=== PATIENT | male | born 1940 | race Caucasian/White ===

== ENCOUNTER → 2016-06-25 | Outpatient (CLI) | payer OTHER ==
[~2016-06-25] VITALS: Ht 170.2 cm; Wt 72.6 kg
[~2016-06-25] MED LIST: ACTOS 30 MG TAB30 M2 PO; ALIGN4 MG PO; AMARYL1 MG; AMARYL1 MG PO; AMARYL2 MG PO; APAP650 PO; BUTRANS1 EAC1 TD; CALCIUM 500 +1 EAC5; CALCIUM 500 +1 EAC5 PO; CALCIUM OYSTER500 MG PO; CENTRUM SILVER1 EAC2; CIPROFLOXACIN500 M1 PO; CIPROFLOXACIN500 M3 OR; COUMADIN 4 MG TA4 M1; COUMADIN 4 MG TA4 M1 PO; COUMADIN PO; DESYREL50 MG PO; DEXILANT30 MG; DEXILANT60 MG PO; DIABETA 2.5MG2.5 MG PO; DIAZEPAM 2MG TAB2 MG PO; FINASTERIDE5 MG PO; FISH OIL 1,001000 M2 PO; FLAGYL500 MG PO; GAS-X180 MG PO; GLUCOPHAGE500 MG PO; HYDROCODON-ACE1 EAC7 PO; IMODIUM ADVANC1 EAC1 PO; INVOKANA100 MG; INVOKANA300 MG PO; K-DUR10 MEQ PO; KAPIDEX30 MG PO; LEVAQUIN 500 M500 M1 PO; LOPERAMIDE 2 MG2 M1 PO; LOVAZA1000 MG PO; LYRICA 75 MG CA75 MG PO; MELATONIN1 MG PO; MELATONIN3 M3 PO; MELATONIN3 MG; METAMUCIL0.52 GM PO; MS CONTIN15 MG PO; MULTIVITAMINS PO; NIASPAN ER 101000 M1 PO; NIASPAN750 MG PO; NORCO 5-325 TA1 EACH PO; OPIUM PO; OPIUM TINC10 MG/1 M1 PO; OPIUM TINC10 MG/1 ML PO; OPIUM10 MG/1 ML PO; OS-CAL 500+D C1 EACH PO; OSTEO BI-FLEX1 EAC1 PO; OXYCODONE HCL E10 MG PO; PEPCID20 MG PO; PERCOCET PO; PREDNISONE 20 M20 MG PO; PROTONIX 20 MG20 M1 PO; REGLAN 10 MG TA10 MG PO; SINGULAIR 10 MG10 M1; SINGULAIR 10 MG10 M1 PO; SLOW-MAG64 MG PO; TAMSULOSIN HCL0.4 MG PO; TOPROL XL25 MG; TOPROL XL25 MG PO; VALIUM5 MG PO; VITAMIN D1000 UNI1 PO; VITAMIN D31000 UNI2 PO; VITAMIN D3400 UNIT; VITAMIN D400 UNI1 PO; WELLBUTRIN XL300 M2 PO; XALATAN2.5 ML OPHTHALMIC; XANAX 0.25 MG0.25 MG; XANAX 0.25 MG0.25 MG PO; XANAX 0.5 MG0.5 MG PO; XANAX XR1 MG PO; ZOFRAN ODT4 MG PO; [UNRECOGNIZED DRUG - OTHER]
--- NOTE | ~2016-06-25 | HPC ---
[facility] [place] [address] PAIN MANAGEMENT CONSULTATION Name: MARBIN SHIRLEY [id number] Admission: 06/25/16 Attend Phys: Moustapha Coyne MD Discharge: Date of : 38 Report #: [id number] THIS REPORT FOR: //name// CC: Ming Coyne DATE OF SERVICE: 06/25/2016 DATE OF SERVICE: Followup visit for low back pain with radiation to both hips. The patient returns to pain clinic today and would like to have repeat of facet injections that we performed in 2014. He is having almost identical pain. Pain is located in his buttocks and begins in his mid back. At that time, I performed bilateral L4-L5 facet injections where he has x-ray evidence of facet arthropathy. Pain is now returning. He is trying to avoid an increase of medication, which may cause side effects. He remains very active. MEDICATIONS: Reviewed and elicited in electronic medical record, uses Tylenol Arthritis at this time. PHYSICAL EXAMINATION: GENERAL: This is 76 years old who looks younger and acts younger. He moves quickly without antalgic features. VITAL SIGNS: Blood pressure 110/72, heart rate 72, respirations 16. BMI is 25. EXTREMITIES: Examination of the hips reveals no pain with internal and external rotation. No pain with flexion. Carmela is negative. MUSCULOSKELETAL: Examination of the spine reveals good range of motion in flexion, extension reproduces pain and radiating referred patterns to the L4-L5 facet. There is localized tenderness there. X-rays again demonstrate facet arthropathy at L4-L5 and spondylosis. IMPRESSION: Spondylosis lumbosacral spine, particularly at L4-L5 of a focal isolated facet joint arthritis. RECOMMENDATIONS: Facet injections bilaterally under fluoroscopic guidance. We cannot perform these injections today due to preauthorization requirements. Since we proceed with the injections. By: 1722 0027 Moustapha Coyne MD /nt
[2016-06-25 14:34] VITALS: BP 110/72
== END ==
LOC: PAIN 06:51
DX: M47.817 Spondylosis without myelopathy or radiculopathy, lumbosacral region (principal); M46.87 Other specified inflammatory spondylopathies, lumbosacral region; Z87.891 Personal history of nicotine dependence

== ENCOUNTER → 2016-07-09 | Outpatient (CLI) | payer OTHER ==
[~2016-07-09] VITALS: Ht 170.2 cm; Wt 74.4 kg
--- NOTE | ~2016-07-09 | HPC ---
[address] [place] [address] PAIN MANAGEMENT CONSULTATION Name: MARBIN SHIRLEY [id number] Admission: 07/09/16 Attend Phys: Moustapha Coyne MD Discharge: Date of : 38 Report #: [id number] THIS REPORT FOR: //name// CC: Ming Coyne DATE OF SERVICE: 07/09/2016 REASON FOR VISIT: Followup visit for lumbar radiculopathy and lumbar spondylosis, specifically, L4-L5. HISTORY OF PRESENT ILLNESS: The patient returns to pain clinic today with a scheduled L4-L5 bilateral facet injection. The record will reflect that he had nearly 1 year of good relief following an injection in this location. He has facet arthropathy of that location noted on MRI. Given his good response, we are hopeful that we will again see similar response. He complains of pain with standing and oftentimes that awakes him at night. Today, pain is not bad. PHYSICAL EXAMINATION: GENERAL: He is a fit 76-year-old much younger appearing than his stated age. VITAL SIGNS: His blood pressure 101/62 and heart rate 64. MUSCULOSKELETAL: Tenderness is mild across the low back today with minimal back extension pain. IMPRESSION: Facet arthropathy and lumbar spondylosis, L4-L5. RECOMMENDATION: Bilateral L4-L5 facet injection. PROCEDURE: He was taken to the fluoroscopic suite, placed prone, skin prepped with ChloraPrep, skin anesthetized over the L4-L5 facet joint on the left first. A 25-gauge needle was gently advanced into the facet joint through the posterior capsule. There was no blood or CSF aspirated and I gently injected 1 mL of 0.5% bupivacaine mixed with 20 mg of triamcinolone. He tolerated the injection well. C-arm was removed and ____ injection was then performed. He tolerated that injection well with pain zero at recovery. Followup visit planned as needed. We hope that we receive years of relief as we did before. By: 1621 0157 Moustapha Coyne MD /nt
[2016-07-09 12:38] VITALS: BP 101/62
== END | disposition home or self-care (01) ==
LOC: PAIN 07:13
DX: M47.816 Spondylosis without myelopathy or radiculopathy, lumbar region (principal); M46.96 Unspecified inflammatory spondylopathy, lumbar region; M54.16 Radiculopathy, lumbar region; Z87.891 Personal history of nicotine dependence

== ENCOUNTER → 2017-01-18 | Outpatient (CLI) | payer OTHER ==
[~2017-01-18] VITALS: Ht 170.2 cm; Wt 73.9 kg
--- NOTE | ~2017-01-18 | HPC ---
[facility] [address] [place] [address] PAIN MANAGEMENT CONSULTATION Name: MARBIN SHIRLEY Room #: REG [facility] Stephen.#: [id number] Admission: 01/18/17 Attend Phys: Moustapha Coyne MD Discharge: Date of : 38 Report #: [id number] THIS REPORT FOR: //name// CC: Ming Coyne DATE OF SERVICE: 01/18/2017 Followup visit for lumbar spondylosis. The patient returns to pain clinic today for facet injections. He had outstanding response previously with treatment of just 2 facets the L4-L5 joint bilaterally. We plan to repeat same today. Pain is worse at night, although constant. It is nighttime that really bothers him with insomnia. He has been taking 1 hydrocodone 5 at night and I have agreed to provide him with another prescription for 60 tablets. Medications were reviewed and reconciled. He has osteoarthritis, bilateral of the hips and also pain in the back with spondylosis. We discussed activities of daily living and exercise is important for managing his osteoarthritis. He does not smoke. He is not a fall risk. His use of opioid is minimal, no more than 5 morphine mg equivalents per day. We discussed the CDC guidelines briefly and the issues of the opioid crisis. All other medications reviewed and reconciled. He is on a very small amount of alprazolam 0.25 mg at bedtime. Coumadin is present, but should not interfere with these posterior injections. PHYSICAL EXAMINATION: Pleasant, alert and oriented, little bit anxious. Blood pressure 119/74, heart rate 73, BMI is 25.5. He is in good condition appears fit. He has tenderness across his low back, worse with back extension. He has mild radiation into the buttock cheeks, but no radiation further. IMPRESSION: Lumbar spondylosis with referred pain. PROCEDURE: Bilateral L4-L5 facet injections. After informed consent, he was taken to fluoroscopic suite, placed prone, skin prepped with ChloraPrep. Skin anesthetized over L4-L5 facet bilaterally. We first began the left and advanced 25-gauge needle into the inferior recess. After negative aspiration, I gently injected 2 mL of 0.5% bupivacaine mixed with 40 mg triamcinolone. Needle was removed. C-arm was then moved to the right and mirror image injection was performed at the L4-L5 facet joint. He tolerated the injections well. He was taken to recovery room. [place] [address] PAIN MANAGEMENT CONSULTATION Name: MARBIN SHIRLEY Room #: REG KARTHIK Kapoor#: [id number] Admission: 01/18/17 Attend Phys: Moustapha Coyne MD Discharge: Date of : 38 Report #: [id number] discharge for 60 tablets of hydrocodone and a followup visit planned in 2 to 3 months. By: 1322 1812 Moustapha Coyne MD /nt
[2017-01-18 12:35] VITALS: BP 119/74
== END | disposition home or self-care (01) ==
LOC: PAIN 07:29
DX: M47.816 Spondylosis without myelopathy or radiculopathy, lumbar region (principal); Z79.891 Long term (current) use of opiate analgesic; Z79.01 Long term (current) use of anticoagulants; Z91.041 Radiographic dye allergy status; Z88.8 Allergy status to other drugs, medicaments and biological substances; Z79.899 Other long term (current) drug therapy; Z87.891 Personal history of nicotine dependence

== ENCOUNTER → 2017-05-17 | Outpatient (CLI) | payer OTHER ==
[~2017-05-17] VITALS: Ht 170.2 cm; Wt 69.1 kg
[~2017-05-17] MED LIST changes: +DIPHENHIST50 MG PO
--- NOTE | ~2017-05-17 | HPC ---
[facility] [address] [address] PAIN MANAGEMENT CONSULTATION Name: MARBIN SHIRLEY Room #: REG [facility] MGm.#: [id number] Admission: 05/17/17 Attend Phys: Moustapha Coyne MD Discharge: Date of : 38 Report #: [id number] THIS REPORT FOR: //name// CC: Ming Coyne DATE OF SERVICE: 05/17/2017 Followup visit for low back pain. The patient was in the clinic for a short 10-minute followup visit today. We discussed his chronic back pain. He has spondylitic changes throughout his spine, age related. They bother him intermittently. On occasion when the pain is severe he has lumbar facet injections, last performed on 01/18/2017. It has now been almost 4 months and he continues to report a pain score of 0 most of the day. He wakes up sometimes at night and his back is a little bit sore, he can go back to sleep. If the pain is severe enough, he can take a pain medication, but he does not do that on a regular basis. He has a bottle of hydrocodone 5/325, 60 tablets were provided on 01/18/2017 and he still has some of the bottle left. He continues to exercise on a regular basis. Remains fit and has in fact lost some weight. PQRS shows he has some osteoarthritis of the right thumb in addition to the arthritic/spondylitic changes of his spine. He is a fit gentleman with a BMI of 23.9. His blood pressure 106/73, heart rate 66, his respirations 14, O2 sat 97. Pain intensity today is 0. He is not a fall risk, does not use a cane or a walker. He is on a blood thinner, Coumadin, for history of arrhythmia. I provide him with hydrocodone, but his calculated MME would be less than 3. He uses it very intermittently and only for severe pain. IMPRESSION: Lumbar spondylosis. Follow up as needed for injection treatment. Continue with excellent exercise and activity program. By: 1234 1346 Moustapha Coyne MD /nt
[2017-05-17 10:01] VITALS: BP 106/73
== END ==
LOC: PAIN 07:18
DX: M47.896 Other spondylosis, lumbar region (principal)

== ENCOUNTER 2017-07-25 22:24 | Inpatient (IN) | payer OTHER ==
[~2017-07-25] VITALS: Ht 170.2 cm; Wt 68.0 kg
[~2017-07-25 22:24] MED LIST changes: -AMARYL1 MG; -CENTRUM SILVER1 EAC2; +CENTRUM SILVER1 EAC2 PO; -DEXILANT30 MG; +DEXILANT30 MG PO; -INVOKANA100 MG; +INVOKANA100 MG PO; -SINGULAIR 10 MG10 M1; -VITAMIN D3400 UNIT; +VITAMIN D3400 UNIT PO; -XANAX 0.25 MG0.25 MG
[2017-07-25 22:35] VITALS: BP 136/92
[2017-07-25 22:41] LABS: URINE BILIRUBIN NEGATIVE (Negative); URINE BLOOD TRACE (Negative); URINE CLARITY CLEAR; URINE COLOR YELLOW; URINE GLUCOSE-RANDOM* 3+ (Negative); URINE KETONES NEGATIVE (Negative); URINE LEUKOCYTES-REFLEX NEGATIVE (Negative); URINE NITRITE-REFLEX NEGATIVE (Negative); URINE PROTEIN (DIPSTICK) NEGATIVE (Negative); URINE UROBILINOGEN 0.2 E.U./dl (0.2-1.0)
[2017-07-25 22:54] LABS: ABSOLUTE NEUTROPHILS 9.5 thou/uL (1.4-8.2); BASOPHILS 0.6 % (0.0-2.0); EOSINOPHILS 4.9 % (0.0-3.0); HEMATOCRIT 55.2 % (42.0-52.0); MCH 29.4 pg (26.0-34.0); MCHC 34.4 g/dL (28.0-37.0); MCV 85.5 fL (80.0-100.0); PLATELET COUNT 192 thou/uL (150-400); POLYS 76.5 % (36.0-66.0); RBC 6.45 mil/uL (4.50-6.00); RDW 13.8 % (10.5-14.5); WBC 12.5 thou/uL (4.0-11.0)
[2017-07-25 23:00] LABS: CALCIUM 9.8 mg/dL (8.5-10.1); CREATININE 1.1 mg/dL (0.7-1.3); POTASSIUM 4.2 mmol/L (3.5-5.1)
[2017-07-25 23:06] LABS: ALBUMIN 4.6 g/dL (3.4-5.0); TOTAL PROTEIN 8.9 g/dL (6.4-8.2)
[2017-07-26] VITALS (7 sets, daily range): BP systolic 12–136; BP diastolic 51–92
[2017-07-26] MEDS ORDERED: ZOLOFT25 MG PO (01:21)
[2017-07-26 09:17] LABS: CALCIUM 9.5 mg/dL (8.5-10.1); CREATININE 0.8 mg/dL (0.7-1.3)
[2017-07-26 09:18] LABS: POTASSIUM 4.6 mmol/L (3.5-5.1)
[2017-07-26] MEDS ORDERED: BETIMOL5 ML OTIC (11:25)
== END 2017-07-26 18:10 | disposition home or self-care (01) | DRG 392 ==
LOC: ER 22:24 → EROBS 23:58 → 4W 23:58
PROVIDERS: Emergency Medicine; Family Medicine
DX: K52.9 Noninfective gastroenteritis and colitis, unspecified (principal); K56.7 Ileus, unspecified; K21.9 Gastro-esophageal reflux disease without esophagitis; H40.9 Unspecified glaucoma; N40.0 Benign prostatic hyperplasia without lower urinary tract symptoms; E11.9 Type 2 diabetes mellitus without complications; Z88.8 Allergy status to other drugs, medicaments and biological substances; Z91.041 Radiographic dye allergy status; Z90.49 Acquired absence of other specified parts of digestive tract; Z87.891 Personal history of nicotine dependence

== ENCOUNTER → 2017-08-12 | Outpatient (CLI) | payer OTHER ==
[~2017-08-12] VITALS: Ht 152.4 cm; Wt 67.6 kg
[~2017-08-12] MED LIST changes: +BETIMOL5 ML OTIC; +ZOLOFT25 MG PO
--- NOTE | ~2017-08-12 | HPC ---
[facility] [address] [employer] [place] [address] PAIN MANAGEMENT CONSULTATION Name: MARBIN SHIRLEY Room #: REG [facility] MGm.#: [id number] Admission: 08/12/17 Attend Phys: Moustapha Coyne MD Discharge: Date of : 38 Report #: [id number] THIS REPORT FOR: //name// CC: Ming Coyne DATE OF SERVICE: 08/12/2017 Followup visit for lumbar spondylosis. The patient is here today for a preop visit prior to facet injections. He is required to undergo a preauthorization by his [employer] insurance. He reports to me that he gets good improvement with tightness in his back across the lumbosacral region that radiates into the hips in referred pattern. He always gets good relief. We have tried not to overutilize these injections and use them only as a tool when the pain becomes more unbearable for him. His last injection was on 01/18/2017. He scores his pain today is a 5. PQRS shows osteoarthritis in multiple joints, although he is really quite fit for age. He has tenderness and pain in multiple locations including hips, hands, and across the low back with spondylitic changes. His BMI is 23, blood pressure 162/77, heart rate is 77. Pain intensity is 5/10. He is not a fall risk. He is not on a blood thinner. He is not on hypertension medications and is not taking opioids at this time. IMPRESSION: Chronic low back pain with spondylosis. Pain across the lumbosacral segment. PLAN: Follow up for lumbosacral facet injections, L4-L5 and L5-S1 if necessary in 1-2 weeks. <ELECTRONICALLY SIGNED> By: Moustapha Coyne MD 08/16/17 1230 1545 [id number] Moustapha Coyne MD /nt
[2017-08-12 13:41] VITALS: BP 107/65
== END ==
LOC: PAIN 07:28
DX: M47.816 Spondylosis without myelopathy or radiculopathy, lumbar region (principal); M54.5 Low back pain; G89.29 Other chronic pain

== ENCOUNTER → 2017-08-30 | Outpatient (CLI) | payer OTHER ==
[~2017-08-30] VITALS: Ht 154.9 cm; Wt 66.2 kg
[~2017-08-30] MED LIST changes: +BENADRYL25 MG PO
--- NOTE | ~2017-08-30 | HPC ---
[facility] [place] [place] [address] PAIN MANAGEMENT CONSULTATION Name: MARBIN SHIRLEY Room #: REG [facility].#: [id number] Admission: 08/30/17 Attend Phys: Moustapha Coyne MD Discharge: Date of : 38 Report #: [id number] THIS REPORT FOR: //name// CC: Ming Coyne DATE OF SERVICE: 08/30/2017 Followup visit for lumbar spondylosis and injection of bilateral L4-L5 and L5-S1 facet joints. The patient was seen in consultation on 08/12/2017. He has responded nicely in the past with injection treatments for low back pain. He has lumbar spondylosis. Pain can be quite significant causing radiation into his hips, worse left than right. He has requested periodic injections when the pain becomes more severe and limits his activities. He plans on saying Mass this morning at [facility] where he lives. He is anxious to get some relief from his persistent daily pain. Pain intensity today is similar at a level of 5 with activity. With sitting, the pain intensity is 0. All PQRS review was the same as it was on 08/12/2017 with no changes. PHYSICAL EXAMINATION: He is stable today. Blood pressure 106/67, heart rate 74, respirations 16. Tenderness across his low back is noted and pain increased with lumbar extension. The patient is on Coumadin. We have performed these injections in the posterior segments of the spine without incident in the past. This is not an epidural injection. I felt it is safer to leave him on his Coumadin and then take him off. We will proceed with injections under fluoroscopic guidance. ASSESSMENT: Lumbar spondylosis, bilateral L4-L5 and L5-S1 with recurring intractable pain. PROCEDURE: Facet injections under fluoroscopic guidance. He was taken to the fluoroscopic suite, placed prone. Skin was prepped with ChloraPrep. Skin was anesthetized first on the left. 1% lidocaine was utilized to the skin and subcutaneous tissue. A 25-gauge needle was then advanced into the posterior inferior recess of the facet joints at L5-S1, L4-L5. After negative aspiration, I gently injected 20 mg of triamcinolone, 1.5 mL of 0.25% bupivacaine at each joint. Joanna were removed. C-arm was moved to the right and mirror image injections were performed at the L4-L5, L5-S1 facet joint bilaterally. This was accomplished without difficulty. [address] [address] PAIN MANAGEMENT CONSULTATION Name: MARBIN SHIRLEY Room #: REG CLI [facility]#: [id number] Admission: 08/30/17 Attend Phys: Moustapha Coyne MD Discharge: Date of : 38 Report #: [id number] There were no complications. The patient tolerated the procedure well, was observed for a short time in recovery room and discharged without weakness or numbness. Followup visit is scheduled on an as needed basis in the future. By: [id number] [id number] MD brianna Hernandez
[2017-08-30 09:03] VITALS: BP 106/67
== END | disposition home or self-care (01) ==
LOC: PAIN 08:34
DX: M47.816 Spondylosis without myelopathy or radiculopathy, lumbar region (principal); G89.29 Other chronic pain; Z79.01 Long term (current) use of anticoagulants; Z87.891 Personal history of nicotine dependence; Z91.041 Radiographic dye allergy status; Z88.8 Allergy status to other drugs, medicaments and biological substances; Z87.19 Personal history of other diseases of the digestive system

== ENCOUNTER → 2017-09-06 | Outpatient (CLI) | payer OTHER | LOC: RAD 08-31 14:51 | DX: K56.699 Other intestinal obstruction unspecified as to partial versus complete obstruction (principal); Z91.041 Radiographic dye allergy status ==

== ENCOUNTER → 2017-09-23 | Outpatient (CLI) | payer OTHER ==
[~2017-09-23] VITALS: Ht 170.2 cm; Wt 65.3 kg
[~2017-09-23] MED LIST changes: +BEANO300 UNIT PO; -CALCIUM 500 +1 EAC5; +IPRATROPIUM BRO30 ML NASAL; -[UNRECOGNIZED DRUG - OTHER]; +[UNRECOGNIZED DRUG - OTHER] PO
--- NOTE | ~2017-09-23 | P ---
[facility] [place] [address] PROCEDURE REPORT Name: MARBIN SHIRLEY Room #: REG [facility]#: [id number] Admission: 09/23/17 Attend Phys: Marcello Hill MD Discharge: Date of : 38 Report #: [id number] THIS REPORT FOR: //name// CC: Marcello Perez MD BRIEF HISTORY: The patient is a 77-year-old male well known to me with recurrent solid food dysphagia. 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 He was treated by Dr. Armin Perez with Botox and felt that it was not effective. However, he reports previous dilation did help. PREOPERATIVE DIAGNOSES: Dysphagia and cricopharyngeal achalasia. POSTOPERATIVE DIAGNOSES: 1. Cricopharyngeal achalasia. 2. Dysphagia. 3. Zenker diverticulum. 4. Presbyesophagus. MEDICATIONS: Deep sedation with propofol per anesthesia. SPECIMEN: None. ESTIMATED BLOOD LOSS: None. PROCEDURE: EGD with Rick dilation. FINDINGS: Prior to propofol sedation, procedure of upper endoscopy discussed with the patient as well as potential risks and its complications. He indicates he understands and desires to proceed. DESCRIPTION OF PROCEDURE: With the patient in left decubitus position, the Olympus video endoscope was inserted in cervical esophagus under direct vision without difficulty. Examination of the esophagus through its entire length revealed normal esophageal mucosa. In addition, we carefully examined the upper esophageal sphincter with multiple insertions and withdrawal of scope across the upper esophageal sphincter. I could not identify a Zenker diverticulum. He is noted to have a small Zenker diverticulum. The mucosa through the esophagus was normal. It is also noted he did have tertiary contractions as well. The squamocolumnar junction was unremarkable. A definite stricture or ring was not seen. Hiatus hernia was not seen. There was no evidence of esophagitis or Gillis mucosa. Esophageal varices were not seen. Scope was advanced in the stomach, was examined on end view as well as retroflexed views. He had normal appearing mucosa. No ulcers or erosions were seen. There were no retained [address] [address] PROCEDURE REPORT Name: MARBIN SHIRLEY Room #: REG [facility].#: [id number] Admission: 09/23/17 Attend Phys: Marcello Hill MD Discharge: Date of : 38 Report #: [id number] solids or liquids to suggest gastroparesis. He has had some nausea and some early satiety. Upon retroflexion, no mass lesions were seen. The pylorus, duodenal bulb and postbulbar sweep were all inspected and noted to be within normal limits. At that point, the scope was slowly withdrawn and careful circumferential views confirmed the above findings. The patient tolerated the procedure well. Subsequently, he was dilated with passage of a 50-Chilean Rick dilator. There was no resistance. As we have done before, subsequently a 60-Chilean Rick dilator was passed with no resistance whatsoever. The patient tolerated the procedure well. CONDITION OF THE PATIENT UPON DISCHARGE: Following procedure, the patient drowsy. He will be discharged home when fully ambulatory. INSTRUCTIONS TO THE PATIENT AND FAMILY AT THE TIME OF DISCHARGE: There are multiple facets to his dysphagia including cricopharyngeal achalasia as well as likely a presbyesophagus. He has had symptomatic relief in the past with dilation. We will see how he does at this time. He should return to see me as previously planned. We can repeat dilation on an as needed basis as long as he gains benefit from it. By: 0905 1829 Marcello Hill MD /nt
[2017-09-23 08:22] LABS: INR 1.4; PROTIME 14.4 Seconds (9.3-11.4)
== END | disposition home or self-care (01) ==
LOC: GI 07:20
PROVIDERS: Anesthesiology
DX: K22.2 Esophageal obstruction (principal); K22.0 Achalasia of cardia; K22.5 Diverticulum of esophagus, acquired; K22.8 Other specified diseases of esophagus; I10 Essential (primary) hypertension; E78.5 Hyperlipidemia, unspecified; E11.9 Type 2 diabetes mellitus without complications; K21.9 Gastro-esophageal reflux disease without esophagitis; H40.9 Unspecified glaucoma; N40.0 Benign prostatic hyperplasia without lower urinary tract symptoms; K58.9 Irritable bowel syndrome, unspecified; Z88.8 Allergy status to other drugs, medicaments and biological substances; Z91.041 Radiographic dye allergy status; Z91.038 Other insect allergy status; Z79.01 Long term (current) use of anticoagulants; Z79.899 Other long term (current) drug therapy; Z79.84 Long term (current) use of oral hypoglycemic drugs; Z87.891 Personal history of nicotine dependence; Z98.890 Other specified postprocedural states; Z90.89 Acquired absence of other organs; Z90.49 Acquired absence of other specified parts of digestive tract; Z91.09 Other allergy status, other than to drugs and biological substances
CPT/HCPCS: 62110; 62900

== ENCOUNTER → 2018-05-23 | Outpatient (CLI) | payer OTHER ==
[~2018-05-23] VITALS: Ht 170.2 cm; Wt 66.7 kg
[~2018-05-23] MED LIST changes: +FLONASE 0.05%50 MCG NASAL; -MELATONIN3 MG; +MELATONIN3 MG PO; -TOPROL XL25 MG
--- NOTE | ~2018-05-23 | P ---
[facility] [place] [address] [place] [address] PROCEDURE REPORT Name: MARBIN SHIRLEY Room #: REG [facility]#: [id number] Admission: 05/23/18 ������������������ Attend Phys: Marcello Hill MD Discharge: ������������������ Date of : 38 Report #: [id number] THIS REPORT FOR: //name// CC: Marcello Contreras MD DATE OF SERVICE: 05/23/2018 OUTPATIENT UPPER ENDOSCOPY REPORT: BRIEF HISTORY: The patient is an 78-year-old male with recurrent solid food dysphagia. He has a history of a Zenker diverticulum. He has had symptomatic improvement with dilation in the past. In addition, he has chronic diarrhea. PREOPERATIVE DIAGNOSIS: Dysphagia. POSTOPERATIVE DIAGNOSES: 1. Diffuse gastritis. 2. Candidiasis involving the oropharynx and esophagus. 3. Dysphagia. 4. 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 MEDICATIONS: Deep sedation with propofol for anesthesia. SPECIMENS: 1. Small bowel biopsies to rule out celiac disease. 2. Biopsies of gastritis. ESTIMATED BLOOD LOSS: 3 mL. PROCEDURE: EGD with biopsy, Rick dilation. FINDINGS: Prior to propofol sedation, the procedure of upper endoscopy and dilation was reviewed with the patient as well as potential risks, benefits, and complications. He indicates he understands and desires to proceed. DESCRIPTION OF PROCEDURE: With the patient in left lateral decubitus position, the Olympus video endoscope was inserted in the cervical esophagus under direct vision without difficulty. Examination of this organ through its entire length revealed intact esophageal mucosa, but whitish plaques were seen consistent with candidiasis. It is noted he is using a steroid nasal spray. In addition, there was a moderate amount of similar process in the oropharynx. The squamocolumnar junction was identified as unremarkable. I did not see evidence of stricture or mass. The scope was advanced into the stomach, was examined on end view as well as retroflexed views. The mucosa was intact. There was trace amount of bile in [facility] [address] [place] [address] PROCEDURE REPORT Name: SHIRLEYMARBIN BUNNY Room #: REG [facility].#: [id number] Admission: 05/23/18 ������������������ Attend Phys: Marcello Hill MD Discharge: ������������������ Date of : 38 Report #: [id number] the stomach. The mucosa was diffusely erythematous without ulcers or erosions. The stomach was examined on end view as well as retroflexed views. In the antrum, only gastritis was seen. Upon retroflexion, no mass lesions were seen. However, inspection of the body, after full insufflation of the body of stomach with air, possible gastric varices was seen. There was no evidence of bleeding. There were no stigmata of bleeding. The pylorus was unremarkable. Duodenal bulb was unremarkable. The duodenal sweep down to the third portion was unremarkable. Multiple biopsies were obtained to evaluate for celiac disease in view of his diarrhea. We also obtained gastric biopsies as well. Scope was withdrawn. The patient tolerated the procedure well. Subsequently, he was dilated with passage of a 60-Irish Rick dilator as we have done in the past. This passed without difficulty. In addition, he is known to have a Zenker diverticulum, but I could not visualize one endoscopically today. CONDITION OF THE PATIENT UPON DISCHARGE: Following procedure, the patient drowsy. He was then prepared for colonoscopy. INSTRUCTIONS TO THE PATIENT AND FAMILY AT THE TIME OF DISCHARGE: We will follow up on biopsies obtained today. We will review his records and likely proceed with imaging of the abdomen for further evaluation of gastric varices in view of his history of severe pancreatitis in the past with diabetes. We will also place him on Diflucan in view of his oral candidiasis. He is to return for dilation on an as needed basis as long as benefits are obtained. Proceed with colonoscopy at this time. ��������������������������������������������� ���������������������������������������� By: ��������������������������������������������� 0900 2312 Marcello Hill MD /nt
--- NOTE | ~2018-05-23 | P ---
[facility] [place] [address] [place] [address] PROCEDURE REPORT Name: MARBIN SHIRLEY Room #: REG [facility].#: [id number] Admission: 05/23/18 ������������������ Attend Phys: Marcello Hill MD Discharge: ������������������ Date of : 38 Report #: [id number] THIS REPORT FOR: //name// CC: Marcello Contreras MD DATE OF SERVICE: 05/23/2018 BRIEF HISTORY: The patient is an 78-year-old male with history of colon adenomas. He also has chronic diarrhea. PREOPERATIVE DIAGNOSIS: High risk screening colonoscopy due to history of colon polyps and chronic diarrhea. POSTOPERATIVE DIAGNOSIS: Moderate diverticulosis coli, right and left colon. MEDICATIONS: Deep sedation with propofol per anesthesia. SPECIMENS: 1. Random biopsies, proximal colon, rule out diarrhea. 2. Random biopsies distal colon and rectum, rule out diarrhea. ESTIMATED BLOOD LOSS: 3 mL. PROCEDURE: Colonoscopy to cecum and terminal ileum with biopsy. FINDINGS: Prior to propofol sedation, procedure of colonoscopy discussed with the patient as well as potential risks and its complications. He indicates he understands and desires to proceed. DESCRIPTION OF PROCEDURE: With the patient in left lateral decubitus position, digital examination was completed, which revealed no abnormalities. Subsequently, the Olympus video colonoscope was introduced in the rectum, advanced under direct vision to the cecum. Done with minimal difficulty. The cecum was identified by the ileocecal valve and the appendiceal orifice. I was also able to advance the scope across the ileocecal valve and visualize the distal segment of terminal ileum, which was inspected and noted to be unremarkable. At that point, the scope was slowly withdrawn and careful circumferential views were obtained. There was some bilious material in the colon, which needed to be cleaned up. Overall, a good prep was obtained with cleaning especially in the proximal colon. As we withdrew the scope throughout the colon, the colon was within normal limits. Normal vascular pattern, normal light reflex. No neoplastic lesions were seen on today's exam. There were few scattered diverticula in the proximal colon. There was no endoscopic evidence of diverticulitis. As we withdrew the scope, there was moderate diverticular [facility] [address] [place] [address] PROCEDURE REPORT Name: FERNMARBIN BUNNY Room #: REG [facility].#: [id number] Admission: 05/23/18 ������������������ Attend Phys: Marcello Hill MD Discharge: ������������������ Date of : 38 Report #: [id number] disease seen in the sigmoid colon, but no endoscopic evidence of diverticulitis. The scope was withdrawn in the rectum, no abnormalities were seen. Upon retroflexion, no abnormalities were seen. Scope was withdrawn. The patient tolerated the procedure well. CONDITION OF THE PATIENT UPON DISCHARGE: Following procedure, the patient drowsy, aroused, conversant and will be discharged home when fully ambulatory. INSTRUCTIONS TO THE PATIENT AND FAMILY AT THE TIME OF DISCHARGE: Suggest high fiber diet. We will follow up on biopsies with regards to the diarrhea. No neoplastic lesions were seen. In this point in life, he is not likely to gain benefit from continued routine surveillance colonoscopy in view of his history of polyps. However, colonoscopy should be needed for other purposes, could be undertaken as indicated. He will continue his tincture of opium for his chronic diarrhea. We will make further recommendations after review of the biopsies. Last colonoscopy was 7-8 years ago. Withdrawal time from the cecum was 11 minutes 10 seconds. ��������������������������������������������� ���������������������������������������� By: ��������������������������������������������� [id number] [id number] Marcello Hill MD /nt
--- NOTE | 2018-05-23 07:47 | EKG ---
[place] [address] [facility] [facility] [place] [address] ELECTROCARDIOGRAM REPORT Name: MARBIN SHIRLEY [id number] ������������������ Admission: 05/23/18 ������������������ Attend Phys: Marcello Hill MD Discharge: ������������������ Date of : 38 Report #: [id number] ����������������������������������������������������������������� [id number] THIS REPORT FOR: //name// [facility] Test Date: 2018-05-23 Test Time: 07:12:54 Pat Name: MARBIN SHIRLEY Department: Room: Gender: M Mold Changer: JASSON : 1940 Requested By: Marcello Hill Order Number: [id number] MD: Luis De La Cruz Measurements Intervals Canvas Rate: 79 P: 26 MS: 185 QRS: -10 QRSD: 90 T: 36 QT: 375 QTc: 430 Interpretive Statements Sinus rhythm Inferior infarct, old Compared to ECG 05/28/2015 21:15:34 Inferior Q waves are more prominent Electronically Signed On 05-23-2018 7:47:22 CDT by Luis De La Cruz [email or web address] ��������������������������������������������� <ELECTRONICALLY SIGNED> ���������������������������������������� By: Luis De La Cruz MD, [facility] ��������������������������������������������� 05/23/18 0747 0712 1 Luis De La Cruz MD, FACC /EPI
[2018-05-23 08:16] LABS: INR 1.1; PROTIME 11.3 Seconds (9.3-11.4)
--- NOTE | 2018-05-24 16:06 | PATH ---
[facility] [place] [address] PATHOLOGY RPT PROCEDURE Name: YURIY GAITAN Room #: REG [facility].#: [id number] ������������������ Admission: 05/23/18 ������������������ Date of : 38 Discharge: Report #: [id number] Path Case #: [id number] [facility] Accession Number: [id number] . 01 Material submitted: . PART A: BX SMALL BOWEL R/O CELIAC DISEASE PART B: BX GASTRITIS R/O HPYLORI PART C: BX PROXIMAL COLON R/O COLITIS HX DIARRHEA PART D: BX DISTAL COLON AND RECTUM R/O COLITIS HX DIARRHEA . 01 Clinical history: . Dysphagia, diarrhea, history of polyps Gastritis, dysphagia, ellyn esophagitis, diverticulosis A: Rule out celiac B: Rule out H. pylori C/D: Rule out colitis . 02 Diagnosis: A. Small bowel mucosa, small bowel R/O celiac disease, endoscopic biopsy: - No diagnostic abnormalities present. . B. Gastric mucosas, gastritis R/O H. pylori, endoscopic biopsy: - Mild reactive gastropathy. - Negative for intestinal metaplasia or atrophy. - Negative for Helicobacter pylori (properly controlled immunohistochemical stain performed. . C. Large intestinal mucosa, proximal colon R/O colitis, endoscopic biopsy: - Nonspecific reactive changes. - Negative for microscopic colitis. - Negative for dysplasia or malignancy. . D. Large intestinal mucosa, distal colon and rectum, endoscopic biopsy: - Nonspecific reactive changes. - Negative for microscopic colitis. - Negative for dysplasia or malignancy. (IUV:ulis; 05/24/2018) QMS/05/24/2018 . 02 Comment: Sections of the colonic mucosa designated "proximal colon" and "distal colon and rectum" show focal cryptitis, and a moderately cellular lamina propria composed predominantly of lymphocytes and plasma cells and occasional eosinophils. Surface ulceration is not identified. There are no parasites, granulomas or viral inclusions. Given the description, the differential diagnosis includes focal resolving/transient episode of [facility] [address] [place] [address] PATHOLOGY RPT PROCEDURE Name: YURIY GAITAN Room #: REG [facility]#: [id number] ������������������ Admission: 05/23/18 ������������������ Date of : 38 Discharge: Report #: [id number] Path Case #: [id number] active colitis, bowel preparation, medication-induced colitis, resolving infectious-type of colitis amongst other possibilities. Please correlate with clinical as well as endoscopic findings. (IUV:luis; 05/24/2018) . 02 Electronically signed: . Yessica Kaplan MD, Pathologist NPI- [id number] . 01 Gross description: . A. The specimen is received in formalin, labeled "Gaitan, Yuriy, BX small bowel" and consists of multiple fragments of soft chase tissue measuring 0.9 x 0.6 x 0.2 cm in aggregate which are entirely submitted in A1. . B. The specimen is received in formalin, labeled "Gaitan, Yuriy, BX gastritis" and consists of multiple fragments of soft chaes tissue measuring 1.2 x 0.6 x 0.2 cm in aggregate which are entirely submitted in B1. . C. The specimen is received in formalin, labeled "Gaitan, Yuriy, BX proximal colon" and consists of multiple fragments of soft chase-brown tissue measuring 0.9 x 0.7 x 0.3 cm in aggregate which are entirely submitted in C1. . D. The specimen is received in formalin, labeled "Gaitan, Yuriy, BX distal colon and rectum" and consists of multiple fragments of chase tissue measuring 1.8 x 0.6 x 0.2 cm in aggregate which are entirely submitted in D1. (SDY; 05/23/2018) SYU/SYU . 02 Pathologist provided ICD-10: K31.9 . 02 CPT . 196718, 640348, 508933, 263376, X45132 Specimen Comment: A courtesy copy of this report has been sent to Specimen Comment: [phone], . Specimen Comment: Report sent to / DR BEJARANO Performed at: [address] [facility], [place], [place] [id number] MD Erik Woods MD Phone: [phone] Performed at: [address] [id number] MD Yessica Kaplan MD Phone: [phone]
== END | disposition home or self-care (01) ==
LOC: GI 06:58
PROVIDERS: Specialist
DX: K52.9 Noninfective gastroenteritis and colitis, unspecified (principal); K57.30 Diverticulosis of large intestine without perforation or abscess without bleeding; R13.10 Dysphagia, unspecified; K29.70 Gastritis, unspecified, without bleeding; B37.9 Candidiasis, unspecified; K31.9 Disease of stomach and duodenum, unspecified; I10 Essential (primary) hypertension; E78.5 Hyperlipidemia, unspecified; K21.9 Gastro-esophageal reflux disease without esophagitis; N40.0 Benign prostatic hyperplasia without lower urinary tract symptoms; E11.9 Type 2 diabetes mellitus without complications; Z86.010 Personal history of colon polyps; Z87.891 Personal history of nicotine dependence; Z90.49 Acquired absence of other specified parts of digestive tract; Z98.890 Other specified postprocedural states; Z88.8 Allergy status to other drugs, medicaments and biological substances; Z91.041 Radiographic dye allergy status; Z79.01 Long term (current) use of anticoagulants
CPT/HCPCS: 62110; 62900

== ENCOUNTER → 2018-06-30 | Outpatient (CLI) | payer OTHER ==
[~2018-06-30] VITALS: Ht 170.2 cm; Wt 69.3 kg
--- NOTE | ~2018-06-30 | HPC ---
[facility] [place] [address] PAIN MANAGEMENT CONSULTATION Name: MARBIN SHIRLEY Room #: REG [facility].#: [id number] Admission: 06/30/18 ������������������ Attend Phys: Moustapha Coyne MD Discharge: ������������������ Date of : 38 Report #: [id number] THIS REPORT FOR: //name// CC: Ming Coyne DATE OF SERVICE: 06/30/2018 Followup visit for lumbar spondylosis and some increasing pain in the sacroiliac joint. The patient returns to pain clinic today and complains bitterly of pain in the sacroiliac joints. It radiates into the hips. It has been present before. He has had injections also in his lumbar facet joints. Today, the pain is much lower and is keeping him up at night. He dramatically tells me that he was up at 01:00, 03:00 and 05:00, all because of pain. He does get relief from pain medication, but has been reluctant to take it because of all the press surrounding the opioid crisis. I have told him that if he can manage his constipation, that taking a whole pain pill at bedtime might allow him to sleep through the night, rather than taking half a pill, waking up and taking another half. All medications have been reviewed and reconciled. He is on a blood thinner Coumadin and I will allow him to remain on it for the facet injections. It is not necessary to discontinue for these joint injections. He has diffuse osteoarthritis including his thumb and then the spondylosis of the spine. His BMI is 23. He is not a fall risk and he has not fallen in the last 3 months. He has no history of hypertension. He has completed an opioid risk tool in our clinic, which is 0/3. He does not have an opioid contract because I do not provide his medicine; it is given by Dr. Contreras. SOCIAL HISTORY: He denies use of tobacco, drinks alcohol sacramentally and also in the social setting. 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 VITAL SIGNS: He is 5 feet 7 inches, 152 pounds. BMI 23.9. His blood pressure is 123/72 and heart rate 76. MUSCULOSKELETAL: Localized intensity of pain is noted with tenderness over the sacroiliac joint. There is a positive Carmela, reproducing pain in that region. He scores his pain as a 0, but says at nighttime, it is an 8/10. MPRESSION: Lumbar spondylosis, bilateral and recurring[place] [address] PAIN MANAGEMENT CONSULTATION Name: MARBIN SHIRLEY [id number] Admission: 06/30/18 ������������������ Attend Phys: Moustapha Coyne MD Discharge: ������������������ Date of : 38 Report #: [id number] discomfort is most prominent today. PLAN: I would perform his injections today, but he has insurance and requires a preauthorization. We see him back in the clinic for the injections once we receive preauthorization to go forward. 25 minutes. ��������������������������������������������� ���������������������������������������� By: ��������������������������������������������� 1745 1409 Moustapha Coyne MD /nt
[2018-06-30 09:17] VITALS: BP 123/72
--- NOTE | 2018-06-30 09:31 | NUR ---
Pain Clinic Assessment: 1. History of Osteoarthritis: RIGHT THUMB History of Rheumatoid Arthritis: NO 2. Height: 5 ft. 7 in. 170.2 cm. Weight: 152.8 lb. oz. 69.310 kg. Patient's BMI: 23.9 3. Vital Signs: BP: 123/72 Pulse: 76 Resp: 16 Temp: 02 Sat: 97 ECG Mon: 4. Pain Intensity: 0 now, 5-8 hs 5. Fall Risk: Dizziness: N Needs help standing or walking: N Fallen in the last 3 months: N Fall risk comments: 6. Patient on Blood Thinner: Warfarin (Coumadin) 7. History of Hypertension: N 8. Opioid Therapy greater than 6 weeks: N Opiate Contract Signed: 9. Risk Assessment Tool Provided: LOW RISK 0/3 10. Functional Assessment Tool: 11. Recreational Drug Use: Never Drug Type: Tobacco Use: Former Smoker Tobacco Type: Amount or Packs/day: How Many Years: Alcohol Use: Yes Frequency: Quant:
== END ==
LOC: PAIN 06:46
DX: M47.896 Other spondylosis, lumbar region (principal); M25.551 Pain in right hip; M25.552 Pain in left hip; Z87.891 Personal history of nicotine dependence; Z72.89 Other problems related to lifestyle

== ENCOUNTER → 2018-08-01 | Outpatient (CLI) | payer OTHER ==
[~2018-08-01] VITALS: Ht 170.2 cm; Wt 67.1 kg
[~2018-08-01] MED LIST changes: +NORCO 5-325 TA1 EAC1 PO
--- NOTE | ~2018-08-01 | HPC ---
[facility] [place] [address] [place] [address] PAIN MANAGEMENT CONSULTATION Name: MARBIN SHIRLEY [id number] Admission: 08/01/18 ������������������ Attend Phys: Moustapha Coyne MD Discharge: ������������������ Date of : 38 Report #: [id number] THIS REPORT FOR: //name// CC: Ming Coyne DATE OF SERVICE: 08/01/2018 Followup visit for sacroiliitis. The patient was seen three weeks ago. He had localized pain in the area of the sacroiliac joint and a positive Carmela test. We have elected to proceed today with sacroiliac injections that had been preauthorized and approved by his insurance company. Little has changed since last visit. He continues to complain of pain at a level of 5/10 as a maximum, at 0/10 with sitting. PHYSICAL EXAMINATION: Height 5 feet 7 inches, weight 148 pounds, BMI 23.2, blood pressure 115/71, heart rate is 69, O2 sat 95%. He moves easily from sitting to standing position. He has tenderness bilaterally over the sacroiliac joints. There is pain with forward flexion and extension. Positive Carmela reproducing pain in the sacroiliac joint, but not in the hips. IMPRESSION: Lumbar spondylosis with sacroiliac joint pain bilaterally. RECOMMENDATION: Bilateral sacroiliac injections under fluoroscopic guidance. After informed consent, he was taken to the fluoroscopic suite, placed prone, skin prepped with ChloraPrep. Skin anesthetized first on the left. A 22-gauge spinal needle was gently advanced into the sacroiliac joint and Omnipaque injected to confirm an arthrogram. It was then followed by 1 mL of 0.25% bupivacaine mixed with 40 mg triamcinolone. Needle was removed. C-arm was then moved to the right. injection was performed of the right sacroiliac joint. He tolerated the procedure well. He was observed in recovery room for about 40 minutes. His pain score is 0 at discharge. Follow up as needed. No medications were ordered on this visit. It was set as an injection visit. ��������������������������������������������� ���������������������������������������� By: ��������������������������������������������� 1655 1716 Moustapha Coyne MD /nt
[2018-08-01 12:30] VITALS: BP 115/71
--- NOTE | 2018-08-01 12:34 | NUR ---
Pain Clinic Assessment: 1. History of Osteoarthritis: RIGHT THUMB History of Rheumatoid Arthritis: NO 2. Height: 5 ft. 7 in. 170.2 cm. Weight: 148.0 lb. oz. 67.132 kg. Patient's BMI: 23.2 3. Vital Signs: BP: 115/71 Pulse: 669 Resp: 14 Temp: 02 Sat: 95 ECG Mon: 4. Pain Intensity: 0 now, 5 MAX 5. Fall Risk: Dizziness: N Needs help standing or walking: N Fallen in the last 3 months: N Fall risk comments: 6. Patient on Blood Thinner: Warfarin (Coumadin) 7. History of Hypertension: N 8. Opioid Therapy greater than 6 weeks: N Opiate Contract Signed: 9. Risk Assessment Tool Provided: LOW RISK 0/3 10. Functional Assessment Tool: 11. Recreational Drug Use: Never Drug Type: Tobacco Use: Former Smoker Tobacco Type: Amount or Packs/day: How Many Years: Alcohol Use: Yes Frequency: Quant:
== END | disposition home or self-care (01) ==
LOC: PAIN 06:55
DX: M53.3 Sacrococcygeal disorders, not elsewhere classified (principal); M47.896 Other spondylosis, lumbar region; Z79.01 Long term (current) use of anticoagulants; Z87.891 Personal history of nicotine dependence; Z98.890 Other specified postprocedural states; Z91.041 Radiographic dye allergy status; Z87.19 Personal history of other diseases of the digestive system

== ENCOUNTER → 2018-08-02 | Outpatient (CLI) | payer OTHER | LOC: ULTRA 12:38 | DX: R22.31 Localized swelling, mass and lump, right upper limb (principal) ==

== ENCOUNTER → 2018-10-20 | Outpatient (CLI) | payer OTHER ==
[~2018-10-20] VITALS: Ht 170.2 cm; Wt 68.4 kg
[~2018-10-20] MED LIST changes: +NEURONTIN 300300 M1 PO
--- NOTE | ~2018-10-20 | HPC ---
[facility] [place] [place] [address] PAIN MANAGEMENT CONSULTATION Name: MARBIN SHIRLEY Room #: REG [facility] Stephen.#: [id number] Admission: 10/20/18 Attend Phys: Moustapha Coyne MD Discharge: Date of : 38 Report #: [id number] THIS REPORT FOR: //name// CC: Ming Coyne DATE OF SERVICE: 10/20/2018 Followup visit for chronic low back pain with spondylosis. The patient returns to pain clinic today complaining of pain in both sacroiliac joint and lumbosacral spondylosis. He describes a deep aching sensation in his low back that is worse with back flexion and primarily extension. He has been undergoing physical therapy twice a week at [facility] and has found this to be helpful. He was started on gabapentin for some radicular symptoms and has found that this is helping, but has not taken away the pain across the lumbosacral segment. PQRS REVIEW: 1. Positive for osteoarthritis, mostly involving the back and also he has some arthritis on the right. 2. BMI 23.6. 3. Vital signs: Blood pressure 116/70, heart rate 80, respirations 16, O2 sat 98. 4. Pain intensity 3-4/10. 5. No fall risk. 6. The patient is on Coumadin. 7. No history of hypertension or medications to treat such. 8. No opioid agreement. 9. Low risk for addiction by the ORT 10. Functional assessment scores 18/70. He denies use of tobacco, drinks alcohol in a social setting as well as meth. IMPRESSION: He has lumbosacral spondylosis and has responded favorably to facet injections in the past. I recommended that we perform the injections after he has been off Coumadin and have scheduled him for the procedure as well as a precertification. His pain is primarily with back extension and localized across the lumbosacral segment. [facility] [address] [place] [address] PAIN MANAGEMENT CONSULTATION Name: MARBIN SHIRLEY Room #: REG [facility]on#: [id number] Admission: 10/20/18 Attend Phys: Moustapha Coyne MD Discharge: Date of : 38 Report #: [id number] Followup visit planned when we have received preauthorization and have also lowered his risk off of Coumadin. By: 1821 0148 Moustapha Coyne MD /nt
[2018-10-20 13:05] VITALS: BP 116/70
--- NOTE | 2018-10-20 13:23 | NUR ---
Pain Clinic Assessment: 1. History of Osteoarthritis: RIGHT THUMB History of Rheumatoid Arthritis: NO 2. Height: 5 ft. 7 in. 170.2 cm. Weight: 150.8 lb. oz. 68.402 kg. Patient's BMI: 23.6 3. Vital Signs: BP: 116/70 Pulse: 80 Resp: 16 Temp: 02 Sat: 98 ECG Mon: 4. Pain Intensity: 3-4 5. Fall Risk: Dizziness: N Needs help standing or walking: N Fallen in the last 3 months: N Fall risk comments: 6. Patient on Blood Thinner: Warfarin (Coumadin) 7. History of Hypertension: N 8. Opioid Therapy greater than 6 weeks: N Opiate Contract Signed: 9. Risk Assessment Tool Provided: LOW RISK 0/3 10. Functional Assessment Tool: 11. Recreational Drug Use: Never Drug Type: Tobacco Use: Former Smoker Tobacco Type: Amount or Packs/day: How Many Years: Alcohol Use: Yes Frequency: Quant:
== END ==
LOC: PAIN 06:57
DX: M47.817 Spondylosis without myelopathy or radiculopathy, lumbosacral region (principal)

== ENCOUNTER → 2018-11-07 | Outpatient (CLI) | payer OTHER ==
[~2018-11-07] VITALS: Ht 170.2 cm; Wt 67.1 kg
[~2018-11-07] MED LIST changes: +AZELASTINE137 MCG/0. NASAL; +XYZAL5 MG PO
--- NOTE | ~2018-11-07 | HPC ---
[facility] [place] [address] PAIN MANAGEMENT CONSULTATION Name: MARBIN SHIRLEY Room #: REG [facility].#: [id number] Admission: 11/07/18 ������������������ Attend Phys: Moustapha Coyne MD Discharge: ������������������ Date of : 38 Report #: [id number] THIS REPORT FOR: //name// CC: Ming Coyne Followup visit for lumbar spondylosis. The patient was in the pain clinic just 2 weeks ago. He is back today for treatment of his lumbar spondylosis. We discussed today multiple pain generators once again. He has several areas of complaint including the sacroiliac joints of spondylitic pain and radiculopathy. He has responded favorably to facet injections for his low back pain. Dr. Contreras provides medication for him. I do not write for his opioids. He takes hydrocodone on an as needed basis, moderate dose is less than 10 MME. PHYSICAL EXAMINATION: Unchanged from previous visit. IMPRESSION: Lumbosacral spondylosis. PROCEDURE: Bilateral L5-S1, L4-L5 facet injections under fluoroscopic guidance. DESCRIPTION OF PROCEDURE: He was taken to the fluoroscopic suite, placed prone, skin prepped with ChloraPrep. Skin anesthetized first on the left. Using biplanar fluoroscopic views, I advanced needles into the facet joint posterior capsule at its inferior recess at L5-S1 and also at L4-L5. After negative aspiration, injected both joints, each with 1 mL of 0.5% bupivacaine and 2 mg of dexamethasone. [place] were removed. C-arm was then moved to the right and we performed a mirror image injection, also injecting the same joints. There were no complications. He tolerated the procedure well. Pain was reduced in recovery room and he is discharged. Followup visit planned as needed. ��������������������������������������������� ���������������������������������������� By: ��������������������������������������������� 1747 0225 Moustapha Coyne MD /nt
[2018-11-07 10:52] VITALS: BP 105/72
--- NOTE | 2018-11-07 11:02 | NUR ---
Pain Clinic Assessment: 1. History of Osteoarthritis: RIGHT THUMB History of Rheumatoid Arthritis: NO 2. Height: 5 ft. 7 in. 170.2 cm. Weight: 148.0 lb. oz. 67.132 kg. Patient's BMI: 23.2 3. Vital Signs: BP: 105/72 Pulse: 87 Resp: 16 Temp: 02 Sat: 96 ECG Mon: 4. Pain Intensity: 9-LEFT HIP, 5-6-RIGHT HIP 5. Fall Risk: Dizziness: N Needs help standing or walking: N Fallen in the last 3 months: N Fall risk comments: 6. Patient on Blood Thinner: Warfarin (Coumadin) 7. History of Hypertension: N 8. Opioid Therapy greater than 6 weeks: N Opiate Contract Signed: 9. Risk Assessment Tool Provided: LOW RISK 0/3 10. Functional Assessment Tool: 11. Recreational Drug Use: Never Drug Type: Tobacco Use: Former Smoker Tobacco Type: Amount or Packs/day: How Many Years: Alcohol Use: No Frequency: Quant:
== END | disposition home or self-care (01) ==
LOC: PAIN 06:53
DX: M47.817 Spondylosis without myelopathy or radiculopathy, lumbosacral region (principal); Z87.891 Personal history of nicotine dependence; Z88.8 Allergy status to other drugs, medicaments and biological substances; Z79.899 Other long term (current) drug therapy; Z79.01 Long term (current) use of anticoagulants

== ENCOUNTER → 2018-12-15 | Outpatient (CLI) | payer OTHER ==
[~2018-12-15] VITALS: Ht 170.2 cm; Wt 67.1 kg
[~2018-12-15] MED LIST changes: +BETIMOL5 ML OPHTHALMIC; -BETIMOL5 ML OTIC
--- NOTE | 2018-12-19 11:53 | P ---
[facility] [place] [address] PROCEDURE REPORT Name: MARBIN SHIRLEY Room #: REG [facility]#: [id number] Admission: 12/15/18 Attend Phys: Marcello Hill MD Discharge: Date of : 38 Report #: [id number] THIS REPORT FOR: //name// CC: Marcello MAGAÑA MD BRIEF HISTORY: The patient is an 78-year-old male with a history of recurrent dysphagia. He also has dyspeptic symptoms and it is noted he takes Dexilant 30 mg daily, chronically. PREOPERATIVE DIAGNOSIS: Recurrent dysphagia and dyspepsia. POSTOPERATIVE DIAGNOSES: 1. Diffuse gastritis. 2. Gastric varices, nonbleeding, stable. 3. Small hiatus hernia. 4. Zenker diverticulum. 5. Dysphagia. MEDICATIONS: Deep sedation with propofol per Anesthesia. SPECIMEN: None. ESTIMATED BLOOD LOSS: None. PROCEDURE: EGD and Rick dilation. FINDINGS: Prior to propofol sedation, the procedure of upper endoscopy was discussed with the patient as well as potential risks and its complications. He indicates he understands and desires to proceed. DESCRIPTION OF PROCEDURE: With the patient in left lateral decubitus position, the Olympus video endoscope was inserted in the cervical esophagus under direct vision without difficulty. As we passed through the cricopharyngeus, the slit was seen for the Zenker's diverticulum. I cannot see the diverticulum per se, but I did see the split that leads into the diverticulum. There was no evidence of mucosal disease at that level. The scope was advanced through the esophagus. The esophageal mucosa was intact. It is noted he has had Penny esophagitis in the past and none was seen today. No strictures or masses were seen. 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 The squamocolumnar junction was inspected and noted to be unremarkable. A small, less than 2 cm sliding type hiatus hernia was seen. 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 There was no evidence of esophageal varices. The scope was advanced into the stomach, was examined on end view as well as retroflexed views. He was noted to have diffuse gastritis, [facility] [address] [place] [address] PROCEDURE REPORT Name: MRABIN SHIRLEY Room #: REG [facility].#: [id number] Admission: 12/15/18 Attend Phys: Marcello Hill MD Discharge: Date of : 38 Report #: [id number] which has been previously noted. There were no ulcers or erosions. No bleeding lesions were seen. In the body of the stomach, there were gastric varices. These have been noted in the past and were felt to be stable. There is no evidence of bleeding or stigmata of bleeding. Upon retroflexion, no lesions were seen in the cardia. The pylorus, duodenal bulb and post-coronary sweep were all inspected and noted to be unremarkable. At that point, the scope was slowly withdrawn and careful circumferential views confirmed the above findings. The patient tolerated the procedure well. Subsequently, he was dilated with passage of a 60-Syriac Rick dilator, it passed without difficulty. CONDITION OF THE PATIENT UPON DISCHARGE: Following procedure, the patient drowsy, aroused, conversant and will be discharged home when fully ambulatory. INSTRUCTIONS TO THE PATIENT AND FAMILY AT THE TIME OF DISCHARGE: As noted above. He benefits from periodic esophageal dilation as long as he obtains good benefit, we will continue to do so. I suspect part of his problem with dysphagia is presbyesophagus. He had complained of dyspepsia today. He is on Dexilant. I do not see any ulcers at this time. It is noted he does use narcotics, which may be a factor. We can consider increasing his Dexilant from 30 to 60 mg daily or adding another agent such as sucralfate We will discuss further with him. He is to return to see me in the office as needed. He is referred for dilation on an as needed basis as well. <ELECTRONICALLY SIGNED> By: Marcello Hill MD 12/19/18 1153 1110 0022 Marcello Hill MD /nt
== END | disposition home or self-care (01) ==
LOC: GI 08:15
DX: R13.19 Other dysphagia (principal); R10.13 Epigastric pain; K29.70 Gastritis, unspecified, without bleeding; K22.5 Diverticulum of esophagus, acquired; I86.4 Gastric varices; K44.9 Diaphragmatic hernia without obstruction or gangrene; F32.9 Major depressive disorder, single episode, unspecified; E78.5 Hyperlipidemia, unspecified; K21.9 Gastro-esophageal reflux disease without esophagitis; E11.9 Type 2 diabetes mellitus without complications; H40.9 Unspecified glaucoma; Z98.890 Other specified postprocedural states; Z79.899 Other long term (current) drug therapy; Z91.041 Radiographic dye allergy status; Z87.891 Personal history of nicotine dependence; Z90.49 Acquired absence of other specified parts of digestive tract; Z88.8 Allergy status to other drugs, medicaments and biological substances
CPT/HCPCS: 62110; 62900

== ENCOUNTER → 2018-12-19 | Outpatient (CLI) | payer OTHER ==
[~2018-12-19] VITALS: Ht 170.2 cm; Wt 70.7 kg
--- NOTE | ~2018-12-19 | HPC ---
[facility] [address] [place] [address] PAIN MANAGEMENT CONSULTATION Name: MARBIN SHIRLEY Room #: REG [facility].#: [id number] Admission: 12/19/18 Attend Phys: Moustapha Coyne MD Discharge: Date of : 38 Report #: [id number] THIS REPORT FOR: //name// CC: Ming Coyne DATE OF SERVICE: 12/19/2018 The patient returns to pain clinic today after his most recent treatment facet injections. He reports that he still has pain. The interesting thing is that the pain is completely gone in his lumbosacral region. The pain with flexion and extension is essentially eliminated. His pain today is a new pain generator in the buttocks bilaterally squarely in the center of the gluteal region. Pain is more severe with nocturnal positioning in bed and often times he gets an electrical sensation. It radiates all the way down the legs consistent with radiculopathy. He is better with movement. Walking seems to help at times. He will get up in the middle of the night and walk around. He can even cycle in the gym. He has been doing this 3-4 times a week. One day it goes well, the next day, maybe not so well and he has pain following this cycling activities. He complains routinely pain with multiple pain generators. One would not know it from seeing him. He appears quite fit and mobile. He is 5 feet 7 inches with a BMI of 24.4. PHYSICAL EXAMINATION: VITAL SIGNS: Blood pressure 124/73, heart rate 69. GENERAL: He can move independently and briskly from a sitting to standing position. His gait is nonantalgic. CHEST: Clear. CARDIAC: Rhythm is regular. MUSCULOSKELETAL: Examination of the spine today reveals minimal pain with flexion and extension. No pain across the lumbosacral segment. No pain in the sacroiliac joints. He has tenderness bilaterally in the gluteal region. Straight leg raising bilaterally is positive. IMPRESSION: 1. Chronic pain, multiple pain generators and migratory pain generators. RECOMMENDATIONS: He may respond favorably to an epidural injection for the pain that radiates into his legs. He has an MRI pending. He will call our office and I can review it. After we have the MRI, we will determine whether or not to provide an epidural injection. He will need to be off of blood thinners and we discussed that. [address] [place] [address] PAIN MANAGEMENT CONSULTATION Name: MARBIN SHIRLEY Room #: REG [facility]#: [id number] Admission: 12/19/18 Attend Phys: Moustapha Coyne MD Discharge: Date of : 38 Report #: [id number] Followup visit as needed. By: 1732 [id number] Moustapha Coyne MD /nt
[2018-12-19 12:53] VITALS: BP 128/73
--- NOTE | 2018-12-19 13:16 | NUR ---
Pain Clinic Assessment: 1. History of Osteoarthritis: RIGHT THUMB History of Rheumatoid Arthritis: NO 2. Height: 5 ft. 7 in. 170.2 cm. Weight: 155.8 lb. oz. 70.670 kg. Patient's BMI: 24.4 3. Vital Signs: BP: 128/73 Pulse: 69 Resp: 14 Temp: 02 Sat: 100 ECG Mon: 4. Pain Intensity: 8 5. Fall Risk: Dizziness: N Needs help standing or walking: N Fallen in the last 3 months: N Fall risk comments: 6. Patient on Blood Thinner: Warfarin (Coumadin) 7. History of Hypertension: N 8. Opioid Therapy greater than 6 weeks: N Opiate Contract Signed: 9. Risk Assessment Tool Provided: LOW RISK 0/3 10. Functional Assessment Tool: 11. Recreational Drug Use: Never Drug Type: Tobacco Use: Former Smoker Tobacco Type: Amount or Packs/day: How Many Years: Alcohol Use: No Frequency: Quant:
== END ==
LOC: PAIN
DX: G89.29 Other chronic pain (principal)

== ENCOUNTER → 2018-12-21 | Outpatient (CLI) | payer OTHER | LOC: MRI 09:26 | DX: M47.816 Spondylosis without myelopathy or radiculopathy, lumbar region (principal); M51.26 Other intervertebral disc displacement, lumbar region; M48.061 Spinal stenosis, lumbar region without neurogenic claudication; M47.27 Other spondylosis with radiculopathy, lumbosacral region ==

== ENCOUNTER → 2019-01-09 | Outpatient (CLI) | payer OTHER ==
[~2019-01-09] VITALS: Ht 170.2 cm; Wt 67.4 kg
[2019-01-09 14:39] LABS: PROTIME 10.6 Seconds (9.3-11.4)
[2019-01-09 14:49] VITALS: BP 110/75
--- NOTE | 2019-01-09 15:00 | NUR ---
Pain Clinic Assessment: 1. History of Osteoarthritis: RIGHT THUMB History of Rheumatoid Arthritis: NO 2. Height: 5 ft. 7 in. 170.2 cm. Weight: 148.0 lb. oz. 67.444 kg. Patient's BMI: 23.2 3. Vital Signs: BP: 110/75 Pulse: 73 Resp: 14 Temp: 02 Sat: 97 ECG Mon: 4. Pain Intensity: 8 5. Fall Risk: Dizziness: N Needs help standing or walking: N Fallen in the last 3 months: N Fall risk comments: 6. Patient on Blood Thinner: Warfarin (Coumadin) 7. History of Hypertension: N 8. Opioid Therapy greater than 6 weeks: N Opiate Contract Signed: 9. Risk Assessment Tool Provided: LOW RISK 0 10. Functional Assessment Tool: 11. Recreational Drug Use: Never Drug Type: Tobacco Use: Former Smoker Tobacco Type: Amount or Packs/day: How Many Years: Alcohol Use: No Frequency: Quant:
== END | disposition home or self-care (01) ==
LOC: PAIN 12-26 08:19
PROVIDERS: Anesthesiology Pain Medicine
DX: M54.16 Radiculopathy, lumbar region (principal); G89.29 Other chronic pain; Z98.890 Other specified postprocedural states; Z79.01 Long term (current) use of anticoagulants; Z87.891 Personal history of nicotine dependence; Z91.041 Radiographic dye allergy status; Z88.8 Allergy status to other drugs, medicaments and biological substances; Z79.899 Other long term (current) drug therapy; Z79.891 Long term (current) use of opiate analgesic

== ENCOUNTER 2019-02-03 12:46 | Inpatient (IN) | payer OTHER ==
[~2019-02-03] VITALS: Ht 172.7 cm; Wt 79.8 kg
[2019-02-03 12:46] VITALS: BP 134/70
[2019-02-03 13:17] LABS: EOSINOPHILS 5.8 % (0.0-3.0); HEMATOCRIT 48.7 % (42.0-52.0); HEMOGLOBIN 16.3 gm/dL (14.0-18.0); LYMPHOCYTES 20.8 % (24.0-44.0); MCH 28.4 pg (26.0-34.0); MCHC 33.4 g/dL (28.0-37.0); MONOCYTES 7.6 % (1.0-8.0); PLATELET COUNT 184 thou/uL (150-400); POLYS 64.8 % (36.0-66.0); RBC 5.74 mil/uL (4.50-6.00); RDW 13.9 % (10.5-14.5); WBC 6.2 thou/uL (4.0-11.0)
[2019-02-03 13:27] LABS: CALCIUM 10.3 mg/dL (8.5-10.1); CREATININE 1.1 mg/dL (0.7-1.3); POTASSIUM 4.6 mmol/L (3.5-5.1)
[2019-02-03 13:33] LABS: ALBUMIN 4.5 g/dL (3.4-5.0); TOTAL BILIRUBIN 0.8 mg/dL (<0.1-1.0); TOTAL PROTEIN 8.3 g/dL (6.4-8.2)
[2019-02-03 15:38] VITALS: BP 126/72
[2019-02-03 16:15] VITALS: BP 106/78
[2019-02-03 16:50] VITALS: BP 130/72
--- NOTE | 2019-02-03 17:47 | NUR ---
Received pt from the ER, pt is stable with his gait and is up at deanne. Nausea and vomiting have been noted, pt stated that partial relief is achieved after vomiting. Pt request to wash up prior to being hooked to any fluids. Kept NPO but allowing ice chips and small sip of water for medication as stated by Dr. Del Rio. POC followed, discomfort in the abdomen has been noted. no other signs or verbalizations of distress have been noted.
[2019-02-03 19:52] VITALS: BP 107/65
--- NOTE | 2019-02-04 03:27 | NUR ---
PT IS A/O X4.PT CARE ASSUMED AT 1900 WITH PT IN CHAIR.PT UP AD LJ.PT C/O OF LACK OF SLEEP AFTER MELATONIN AND XANAX.PT HAD A LARGE BM THIS MORNING.PT IS ON ICE CHIPS AND SIPS OF FLUIDS.CONTINUE TO MONITOR POC
[2019-02-04 03:36] VITALS: BP 110/71
[2019-02-04 08:05] VITALS: BP 115/58
[2019-02-04 10:37] VITALS: BP 115/58
--- NOTE | 2019-02-04 11:47 | NUR ---
Assumed pt care this am, pt is up at deanne and has not issues walking around the room and halls. VS stable, nausea and vomiting has resolved. POC followed with no signs or verbalizations of distress have been noted. Seen by Dr. Contreras, DC instructions given to the pt. IV removed pt is now dc
--- NOTE | 2019-02-06 15:52 | EKG ---
[address] [address] ELECTROCARDIOGRAM REPORT Name: MARBIN SHIRLEY BUNNY Room #: 438-P DIS IN M.R.#: [id number] Admission: 02/03/19 Attend Phys: Ming Contreras MD Discharge: 02/04/19 Date of : 38 Report #: [id number] THIS REPORT FOR: //name// [facility] ED Test Date: 2019-02-03 Test Time: 12:59:16 Pat Name: MARBIN SHIRLEY Department: Room: 438 P Gender: M Horseshoer: SHAUNA : 1940 Requested By: Ming Contreras Order Number: [id number] MD: Nikhil Betancourt Measurements Intervals [place] Rate: 81 P: 49 [place]: 189 QRS: -18 QRSD: 94 T: 45 QT: 358 QTc: 416 Interpretive Statements Sinus rhythm Atrial premature complexes Borderline left axis deviation Low voltage, precordial leads Probable anteroseptal infarct, old Compared to ECG 05/23/2018 07:12:54 Electronically Signed On 02-06-2019 15:52:30 INDUSTRIAL/ORGANIZATIONAL PSYCHOLOGIST by Nikhil Betancourt [email or web address] <ELECTRONICALLY SIGNED> By: Nikhil Betancourt MD 02/06/19 1552 1259 1259 Nikhil Betancourt MD /EPI
== END 2019-02-04 11:51 | disposition home or self-care (01) | DRG 389 ==
LOC: ER 12:46 → EROBS 14:37 → 4S 16:15
PROVIDERS: Emergency Medicine; ADMIT Family Medicine
DX: K56.609 Unspecified intestinal obstruction, unspecified as to partial versus complete obstruction (principal); N17.9 Acute kidney failure, unspecified; Z90.49 Acquired absence of other specified parts of digestive tract; K21.9 Gastro-esophageal reflux disease without esophagitis; N40.0 Benign prostatic hyperplasia without lower urinary tract symptoms; E11.9 Type 2 diabetes mellitus without complications; F32.9 Major depressive disorder, single episode, unspecified; Z86.73 Personal history of transient ischemic attack (TIA), and cerebral infarction without residual deficits; Z88.8 Allergy status to other drugs, medicaments and biological substances; Z91.041 Radiographic dye allergy status; Z87.891 Personal history of nicotine dependence
CPT/HCPCS: 10195

== ENCOUNTER → 2019-08-08 | Outpatient (CLI) | payer OTHER | LOC: SJCVC 09:51 | PROVIDERS: ATTEND Internal Medicine | DX: R00.2 Palpitations (principal); I65.23 Occlusion and stenosis of bilateral carotid arteries; E11.9 Type 2 diabetes mellitus without complications; E78.5 Hyperlipidemia, unspecified; Z79.01 Long term (current) use of anticoagulants; Z86.73 Personal history of transient ischemic attack (TIA), and cerebral infarction without residual deficits; Z82.49 Family history of ischemic heart disease and other diseases of the circulatory system; Z87.891 Personal history of nicotine dependence; Z79.899 Other long term (current) drug therapy ==

== ENCOUNTER → 2019-09-01 | Outpatient (CLI) | payer OTHER ==
[~2019-09-01] MED LIST changes: +IPRATROPIUM BRO15 ML NASAL; +PROBIOTIC1 EAC7 PO; +WARFARIN SODIUM4 MG PO
== END ==
LOC: LAB 10:21
PROVIDERS: ATTEND Student in an Organized Health Care Education/Training Program
DX: Z01.812 Encounter for preprocedural laboratory examination (principal); Z11.59 Encounter for screening for other viral diseases

== ENCOUNTER → 2019-09-07 | Outpatient (CLI) | payer OTHER ==
[~2019-09-07] VITALS: Ht 170.2 cm; Wt 65.8 kg
--- NOTE | ~2019-09-07 | P ---
[facility] [place] [address] PROCEDURE REPORT Name: MARBIN SHIRLEY Room #: REG [facility]#: [id number] Admission: 09/07/19 Attend Phys: Marcello Hill MD Discharge: Date of : 38 Report #: [id number] THIS REPORT FOR: cc: Ming Contreras MD, Neal A. MD Thesing,Marcello Gordillo MD ~ CC: Marcello Contreras MD DATE OF SERVICE: 09/07/2019 BRIEF HISTORY: The patient is an 79-year-old male, well known to me with recurrent solid food dysphagia. He also has a Zenker's diverticulum. 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 Esophageal varices have never been identified. PREOPERATIVE DIAGNOSIS: Recurrent solid food dysphagia. POSTOPERATIVE DIAGNOSES: 1. Recurrent solid food dysphagia. 2. Zenker's diverticulum. 3. Gastric varices. 4. Diffuse gastritis. MEDICATIONS: Deep sedation with propofol per anesthesia. SPECIMEN: None. ESTIMATED BLOOD LOSS: None. PROCEDURE: EGD and Rick dilation. FINDINGS: Prior to propofol sedation, the procedure of upper endoscopy and dilation was reviewed with the patient as well as potential risks, benefits and complications. He indicates he understands and desires to proceed. DESCRIPTION OF PROCEDURE: With the patient in left lateral decubitus position, the Olympus video endoscope was inserted in the cervical esophagus under direct vision without difficulty. The scope passed easily through the cricopharyngeus. Several passes were made with some difficulty, I was able to see the opening to the Zenker's diverticulum. The Zenker's diverticulum was not entered. The scope was advanced the entire length of the esophagus, which appeared to be unremarkable. There was no evidence of esophageal varices, ulcers, erosions, bleeding lesions or mass lesions. A significant hiatus hernia was not seen. No strictures were seen at the GE junction. The scope was advanced in the stomach, [facility] [address] [place] [address] PROCEDURE REPORT Name: MABRIN SHIRLEY Room #: REG [facility]..#: [id number] Admission: 09/07/19 Attend Phys: Marcello Hill MD Discharge: Date of : 38 Report #: [id number] was examined on end view as well as retroflexed views. There was a pattern of gastritis with a small amount of bilious material remained in the stomach. No other abnormalities were identified. Upon retroflexion, no mass lesions were seen. The pylorus, duodenal bulb and postbulbar sweep were all inspected and noted to be unremarkable. At that point, the scope was slowly withdrawn and careful circumferential views confirmed the above findings. Subsequently, he was dilated with passage of a 60-Nepalese Rick dilator. A 60-Nepalese Rick dilator was carefully passed into the upper esophagus with no resistance whatsoever. The dilator was passed its entire length without resistance or difficulty. The patient tolerated the procedure well. CONDITION OF THE PATIENT UPON DISCHARGE: Following procedure, the patient drowsy, will be discharged home when fully ambulatory. INSTRUCTIONS TO THE PATIENT AND FAMILY AT THE TIME OF DISCHARGE: The patient dilated again. He reports he does get good benefit from dilation. I believe the issues of the cricopharyngeus related to his Zenker diverticulum. As long as he gains benefit, he can continue to return for dilation. Once again, his history of portal hypertension was noted, but esophageal varices have never been identified. I also might point out there were no stigmata of bleeding associated with any of his gastric varices. It is noted he has had portal hypertension related to the necrotizing pancreatitis for decades and has never had a GI bleeding. He will continue Dexilant for reflux. He will return to the office on an as needed basis. By: 0936 1430 Marcello Hill MD /nt
== END | disposition home or self-care (01) ==
LOC: GI 05-11 08:56
PROVIDERS: ATTEND Specialist
DX: R13.12 Dysphagia, oropharyngeal phase (principal); K22.5 Diverticulum of esophagus, acquired; K29.70 Gastritis, unspecified, without bleeding; I86.4 Gastric varices; E11.9 Type 2 diabetes mellitus without complications; E78.5 Hyperlipidemia, unspecified; F32.9 Major depressive disorder, single episode, unspecified; K21.9 Gastro-esophageal reflux disease without esophagitis; N40.0 Benign prostatic hyperplasia without lower urinary tract symptoms; H40.9 Unspecified glaucoma; Z98.890 Other specified postprocedural states; Z79.899 Other long term (current) drug therapy; Z90.49 Acquired absence of other specified parts of digestive tract; Z85.828 Personal history of other malignant neoplasm of skin; Z87.891 Personal history of nicotine dependence
CPT/HCPCS: 62110; 62900

== ENCOUNTER → 2019-11-24 | Outpatient (CLI) | payer OTHER | LOC: SJCVCIMAG 08:44 | PROVIDERS: ATTEND Internal Medicine | DX: I07.1 Rheumatic tricuspid insufficiency (principal); E78.5 Hyperlipidemia, unspecified; E11.9 Type 2 diabetes mellitus without complications; R00.2 Palpitations; R06.00 Dyspnea, unspecified ==

== ENCOUNTER → 2020-03-14 | Outpatient (CLI) | payer OTHER | LOC: LAB 13:11 | PROVIDERS: ATTEND Specialist | DX: Z01.812 Encounter for preprocedural laboratory examination (principal); Z20.822 Contact with and (suspected) exposure to COVID-19 ==

== ENCOUNTER → 2020-03-20 | Outpatient (CLI) | payer OTHER ==
[~2020-03-20] VITALS: Ht 170.2 cm; Wt 65.8 kg
[2020-03-20 11:01] LABS: INR 1.1
--- NOTE | 2020-03-20 15:20 | P ---
[facility] [place] [address] PROCEDURE REPORT Name: MARBIN SHIRLEY [facility] [id number] Admission: 03/20/20 Attend Phys: Grupo Heath Discharge: Date of : 38 Report #: [id number] THIS REPORT FOR: cc: Ming Contreras MD, Neal A. MD McElhinney, Christian C. MD ~ DATE OF SERVICE: 03/20/2020 PROCEDURE PERFORMED: Upper endoscopy with esophageal dilation. HISTORY OF PRESENT ILLNESS: The patient is an 80-year-old male with recurrent dysphagia. He has a history of Zenker's diverticulum. Last upper endoscopy with dilation was performed by my partner, Dr. Hill on 09/07/2019 with good benefit. He now has complaints of increasing dysphagia. Plan is for repeat dilation. DESCRIPTION OF PROCEDURE: The risks and benefits of the procedure were explained to the patient, those risks including but not limited to bleeding, perforation and the risk of sedation. He understood these risks and gave informed consent. Sedation was given using propofol per anesthesia. Next, using a standard Olympus upper endoscope, the scope was placed in the patient's mouth and advanced under direct vision through the esophagus, stomach and into the second portion of the duodenum. The larynx was normal in appearance. A possible small Zenker's was noted in the proximal esophagus. The mid and distal esophagus was normal. GE junction was normal. No evidence of stricture. The patient with a possible history of gastric varices on previous upper endoscopy. This is seen on retroflexion minimally, no evidence of gastritis. The pylorus was normal and patent. The duodenal bulb, first and second portion were all normal. The scope was then brought back up into the patient's stomach and a Savary guidewire was inserted through the scope, leaving the guidewire in place as the scope was then withdrawn. Next, a 57-Japanese Savary dilation of the esophagus was then performed without difficulty. The wire and dilator removed. The scope was reintroduced into the patient's stomach. There was no evidence of mucosal tear after dilation. The scope was then withdrawn and the procedure terminated. The patient tolerated the procedure well. IMPRESSION: 1. Small Zenker's diverticulum. 2. Possible small gastric varices. 3. Otherwise, normal upper endoscopy. RECOMMENDATIONS: 1. Observe the patient post-procedure. 2. Repeat dilation on a p.r.n. basis. [address] [address] PROCEDURE REPORT Name: MARBIN SHIRLEY Room #: REG [facility]#: [id number] Admission: 03/20/20 Attend Phys: Grupo Heath Discharge: Date of : 38 Report #: [id number] Thank you for allowing me to participate in his care. <ELECTRONICALLY SIGNED> By: Grupo Ritchie MD 03/20/20 1520 1239 1256 Grupo Ritchie, /luis miguel
== END | disposition home or self-care (01) ==
LOC: GI 09:17
PROVIDERS: ATTEND Specialist
DX: R13.19 Other dysphagia (principal); K22.5 Diverticulum of esophagus, acquired; E11.9 Type 2 diabetes mellitus without complications; E78.5 Hyperlipidemia, unspecified; K21.9 Gastro-esophageal reflux disease without esophagitis; H40.9 Unspecified glaucoma; F32.9 Major depressive disorder, single episode, unspecified; N40.0 Benign prostatic hyperplasia without lower urinary tract symptoms; Z98.890 Other specified postprocedural states; Z79.899 Other long term (current) drug therapy; Z86.73 Personal history of transient ischemic attack (TIA), and cerebral infarction without residual deficits; Z85.828 Personal history of other malignant neoplasm of skin; Z90.49 Acquired absence of other specified parts of digestive tract; Z91.041 Radiographic dye allergy status
CPT/HCPCS: 62110; 62900

== ENCOUNTER 2020-04-27 13:57 | Emergency (ER) | payer OTHER ==
[~2020-04-27] VITALS: Ht 170.2 cm; Wt 65.8 kg
[2020-04-27 14:40] LABS: URINE BLOOD NEGATIVE (Negative); URINE CLARITY CLEAR; URINE COLOR YELLOW; URINE GLUCOSE-RANDOM* 3+ (Negative); URINE KETONES NEGATIVE (Negative); URINE LEUKOCYTES-REFLEX NEGATIVE (Negative); URINE NITRITE-REFLEX NEGATIVE (Negative); URINE PROTEIN (DIPSTICK) NEGATIVE (Negative); URINE SPECIFIC GRAVITY <= 1.005 (1.005-1.035); URINE UROBILINOGEN 0.2 E.U./dl (0.2-1.0)
[2020-04-27 14:59] LABS: ICTOTEST (BILI CONFIRMATORY) Negative (Negative); URINE BILIRUBIN NEGATIVE (Negative)
[2020-04-27 15:28] LABS: HEMATOCRIT 50.7 % (42.0-52.0); HEMOGLOBIN 16.9 gm/dL (14.0-18.0); MCH 28.2 pg (26.0-34.0); MCHC 33.3 g/dL (28.0-37.0); MCV 84.9 fL (80.0-100.0); RBC 5.97 mil/uL (4.50-6.00); RDW 14.7 % (10.5-14.5); WBC 7.4 thou/uL (4.0-11.0)
[2020-04-27 15:39] LABS: CALCIUM 9.7 mg/dL (8.5-10.1); CREATININE 1.2 mg/dL (0.7-1.3); POTASSIUM 4.4 mmol/L (3.5-5.1)
[2020-04-27 15:47] LABS: ALBUMIN 4.2 g/dL (3.4-5.0); TOTAL BILIRUBIN 0.5 mg/dL (0.2-1.0); TOTAL PROTEIN 8.1 g/dL (6.4-8.2)
[2020-04-27 16:37] VITALS: BP 128/76
[2020-04-27] MEDS ORDERED: XANAX 0.25 MG0.25 MG PO (22:43)
== END 2020-04-27 16:38 | disposition home or self-care (01) ==
LOC: ER 13:57
PROVIDERS: Nurse Practitioner Family
DX: R10.32 Left lower quadrant pain (principal); K21.9 Gastro-esophageal reflux disease without esophagitis; E11.9 Type 2 diabetes mellitus without complications; Z79.899 Other long term (current) drug therapy; Z87.891 Personal history of nicotine dependence; Z91.041 Radiographic dye allergy status; Z91.048 Other nonmedicinal substance allergy status; Z88.8 Allergy status to other drugs, medicaments and biological substances

== ENCOUNTER 2020-04-27 19:04 | Observation (INO) | payer OTHER ==
[~2020-04-27] VITALS: Ht 170.2 cm; Wt 64.0 kg
[2020-04-27 19:09] VITALS: BP 124/90
[2020-04-27 20:22] VITALS: BP 105/72
[2020-04-27 20:32] VITALS: BP 105/72
[2020-04-27] MEDS ORDERED: XANAX 0.25 MG0.25 MG PO (22:43)
[2020-04-28 01:21] VITALS: BP 129/63
--- NOTE | 2020-04-28 05:40 | NUR ---
RECIEVED CARE OF THIS PATIENT AT 2054. PATIENT ARRIVED FROM ED VIA W/C ACCOMPANIED BY ED PERSONEL. PATIENT ALERT AND ORIENTED X4. UP IN ROOM. IV INFUSING IN LAC. NO SKIN ISSUES. C/O PAIN, MED GIVEN. DENIES N/V AT THIS TIME. C/O SEVERAL EPISODES OF DIARRHEA. SLEPT OFF AND ON DURING NIGHT.
[2020-04-28 05:47] LABS: CALCIUM 9.9 mg/dL (8.5-10.1); CREATININE 1.3 mg/dL (0.7-1.3); POTASSIUM 4.3 mmol/L (3.5-5.1)
[2020-04-28 09:38] VITALS: BP 96/72
[2020-04-28 11:55] VITALS: BP 113/69
[2020-04-28 15:58] VITALS: BP 105/59
--- NOTE | 2020-04-28 16:45 | NUR ---
patient progressing towards dismissal goals. patient tolerated ice chips. no complaints of nausea today. patient walks vivar with rn. advancing patients diet. possible discharge tomorrow per Dr. Fernández.
[2020-04-28 20:02] VITALS: BP 95/59
--- NOTE | 2020-04-29 05:00 | NUR ---
ASSUMED CARE OF PT AT SHIFT CHANGE. PT IS AOX4 AND LETS NEEDS BE KNOWN. PT IS UP AD LJ. PT DENIED PAIN, NAUSEA OR SOA. PT HAD SEVERAL LOOSE BM THIS SHIFT. ASSESSMENT CHARTED. PT WAS ABLE TO TOLERATE CLEAR LIQUIDS DIET AND PILLS. PT WAS ABLE TO GET COMFORTABLE AND SLEEP PART OF THE SHIFT. VSS AND NO S/S OF ACUTE DISTRESS. WILL CONTINUE TO MONITOR.
[2020-04-29 05:18] LABS: HEMATOCRIT 44.8 % (42.0-52.0); MCH 28.4 pg (26.0-34.0); MCHC 33.2 g/dL (28.0-37.0); MCV 85.4 fL (80.0-100.0); RBC 5.25 mil/uL (4.50-6.00); RDW 14.7 % (10.5-14.5)
[2020-04-29 05:23] LABS: HEMOGLOBIN 14.9 gm/dL (14.0-18.0)
[2020-04-29 05:25] LABS: CALCIUM 8.9 mg/dL (8.5-10.1); CREATININE 1.1 mg/dL (0.7-1.3); POTASSIUM 3.8 mmol/L (3.5-5.1)
[2020-04-29 08:10] VITALS: BP 90/61
--- NOTE | 2020-04-29 11:49 | NUR ---
ASSUMED PT CARE THIS AM. PT VSS, A&OX4. PT PLEASANT AND ABLE TO MAKE NEEDS KNOWN TO STAFF. REPORTING NO NAUSEA, VOMITING, PAIN, NUMBNESS, OR TINGLING. PT REMAINS CONTINENT AND MOVES AROUND THE ROOM INDEPENDENTLY. ON ROOM AIR. PATIENT ON A CLEAR LIQUIDS DIET, CALLED PHYSICIAN TO ADVANCE DIET TO FULL LIQUIDS AND IF PATIENT DOES WELL , TO DISCHARGE THE PATIENT ACCORDINGLY. IV TO LEFT AC TO BE DISCONTINUED UPON DISCHARGE. INSTRUCTED TO CALL WHEN NEEDING ASSISTANCE.
--- NOTE | 2020-04-29 12:31 | NUR ---
PT ADMITTED RELATED TO VOMITING, PSBO. CM REVIEWED CHART AND SPOKE WITH CARE TEAM. CM MET WITH PT AT BEDSIDE THIS DAY. PT IS A&O X4 BUT LITTLE SHELL TRIBE. CM ROLE INTRODUCED. PT INDICATED HE LIVES IN AN INDEPENDENT APART[facility]N [facility]. PT INDICATED NO HH HX. 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 PT INDICATED HE PLANS TO RETURN HOME THIS DAY. PT INDICATED HE WANTS TO BE BACK AT [facility] BEFORE 1330 THEY TEST PT'S AT THAT TIME. PT HAD BEEN ON CLD AND CARE TEAM WERE ADVANCING DIET AMND MAKING SURE PT TOLERATED. CM CALLED FACILITY TO CHECK ABOUT TESTING AND THEY INDICATED THAT THEY TEST UNTIL 1630. IT WOULDN'T BE AN ISSUE. CM MET WITH PT IN PERSON AND NOTIFIED HIM OF THIS. PT THEN TOLD THAT HE WOULD HAVE PREFERED THAT CM HADN'T CALLED FACILITY. CM APPLOOGIZED FOR HAVING DONE SO. PT TO DC [facility] THIS DAY TO SELF CARE.
[2020-04-29 12:45] VITALS: BP 90/61
== END 2020-04-29 13:17 | disposition home or self-care (01) ==
LOC: ER 19:04 → 4W 19:48 → EROBS 19:48 → 4W 19:48
PROVIDERS: Hospitalist; Nurse Practitioner Family; ADMIT Hospitalist; ATTEND Hospitalist
DX: K56.609 Unspecified intestinal obstruction, unspecified as to partial versus complete obstruction (principal); K21.9 Gastro-esophageal reflux disease without esophagitis; E11.40 Type 2 diabetes mellitus with diabetic neuropathy, unspecified; N40.0 Benign prostatic hyperplasia without lower urinary tract symptoms; K58.9 Irritable bowel syndrome, unspecified; I63.9 Cerebral infarction, unspecified; F32.9 Major depressive disorder, single episode, unspecified; Z79.4 Long term (current) use of insulin; Z79.899 Other long term (current) drug therapy
CPT/HCPCS: 10040

== ENCOUNTER → 2020-05-24 | Outpatient (CLI) | payer OTHER | LOC: SJCVC 12:35 | PROVIDERS: ATTEND Internal Medicine | DX: R94.31 Abnormal electrocardiogram [ECG] [EKG] (principal); R00.1 Bradycardia, unspecified; R00.2 Palpitations; I65.23 Occlusion and stenosis of bilateral carotid arteries; E78.5 Hyperlipidemia, unspecified; E11.9 Type 2 diabetes mellitus without complications; I25.10 Atherosclerotic heart disease of native coronary artery without angina pectoris; Z79.01 Long term (current) use of anticoagulants; Z79.899 Other long term (current) drug therapy; Z87.891 Personal history of nicotine dependence; Z88.1 Allergy status to other antibiotic agents; Z88.8 Allergy status to other drugs, medicaments and biological substances; Z86.73 Personal history of transient ischemic attack (TIA), and cerebral infarction without residual deficits ==

== ENCOUNTER → 2020-08-28 | Outpatient (CLI) | payer OTHER ==
[~2020-08-28] VITALS: Ht 170.2 cm; Wt 65.8 kg
--- NOTE | ~2020-08-28 | P ---
[facility] [place] [address] PROCEDURE REPORT Name: YURIY SHIRLEY [id number] Admission: 08/28/20 Attend Phys: Grupo Heath Discharge: Date of : 38 Report #: [id number] THIS REPORT FOR: cc: Yuriy Harry MD, Thomas P. MD McElhinney, Christian C. MD ~ cc: Ming Contreras MD DATE OF SERVICE: 08/28/2020 PROCEDURE PERFORMED: Upper endoscopy with esophageal dilation. HISTORY OF PRESENT ILLNESS: The patient is an 80-year-old male with a history of recurrent dysphagia. He has undergone multiple dilations in the past, which were helpful. He is having recurrent dysphagia at this time. He has a history of a Zenker's diverticulum. Plan is for repeat dilation. DESCRIPTION OF PROCEDURE: The risks and benefits of the procedure were explained to the patient, those risks including but not limited to bleeding, perforation and the risk of sedation. He understood these risks and gave informed consent. Sedation was given using propofol per anesthesia. Next, using a standard Olympus upper endoscope, the scope was placed in the patient's mouth and advanced under direct vision through the esophagus, stomach and into the second portion of the duodenum. The larynx was normal in appearance. Possible small Zenker's was noted in the proximal esophagus. The mid and distal esophagus was normal. The GE junction was normal. Minimal gastric varices were again noted. No evidence of gastritis. Pylorus was normal and patent. The duodenal bulb, first and second portion were all normal. The scope was then brought back up into the patient's stomach and a Savary guidewire was inserted through the scope, leaving the guidewire in place as the scope was then withdrawn. Next, a 57-Lithuanian Savary dilation of the esophagus was then performed without difficulty. The wire and dilator removed. The scope was reintroduced into the patient's stomach. There was no evidence of mucosal tear after dilation. The scope was then withdrawn and the procedure terminated. The patient tolerated the procedure well. IMPRESSION: 1. Small Zenker's diverticulum. 2. Possible small gastric varices. 3. Otherwise, normal upper endoscopy. RECOMMENDATIONS: 1. Observe the patient post-procedure. 2. Repeat dilation on a p.r.n. basis. [address] [address] PROCEDURE REPORT Name: YURIY SHIRLEY Room #: REG [facility]#: [id number] Admission: 08/28/20 Attend Phys: Grupo Heath Discharge: Date of : 38 Report #: [id number] Thank you for allowing me to participate in his care. By: 1042 T: 07/2117 Grupo Ritchie MD /nt
[2020-08-28 10:21] LABS: INR 1.02; PROTIME 11.1 Seconds (10.5-12.1)
== END | disposition home or self-care (01) ==
LOC: GI 08:26
PROVIDERS: ATTEND Specialist
DX: R13.10 Dysphagia, unspecified (principal); K22.5 Diverticulum of esophagus, acquired; E78.5 Hyperlipidemia, unspecified; F32.9 Major depressive disorder, single episode, unspecified; E11.9 Type 2 diabetes mellitus without complications; K21.9 Gastro-esophageal reflux disease without esophagitis; H40.9 Unspecified glaucoma; N40.0 Benign prostatic hyperplasia without lower urinary tract symptoms; Z98.890 Other specified postprocedural states; Z79.899 Other long term (current) drug therapy; Z87.891 Personal history of nicotine dependence; Z85.828 Personal history of other malignant neoplasm of skin; Z90.49 Acquired absence of other specified parts of digestive tract; Z86.73 Personal history of transient ischemic attack (TIA), and cerebral infarction without residual deficits; Z98.0 Intestinal bypass and anastomosis status
CPT/HCPCS: 62110; 62900

== ENCOUNTER → 2020-09-24 | Outpatient (CLI) | payer OTHER | LOC: SJCVC 14:05 | PROVIDERS: ATTEND Internal Medicine | DX: R94.31 Abnormal electrocardiogram [ECG] [EKG] (principal); R00.1 Bradycardia, unspecified; I65.23 Occlusion and stenosis of bilateral carotid arteries; E78.5 Hyperlipidemia, unspecified; E11.9 Type 2 diabetes mellitus without complications; Z88.8 Allergy status to other drugs, medicaments and biological substances; Z79.01 Long term (current) use of anticoagulants; Z79.899 Other long term (current) drug therapy; Z87.891 Personal history of nicotine dependence; Z82.49 Family history of ischemic heart disease and other diseases of the circulatory system ==

== ENCOUNTER → 2020-10-28 | Outpatient (CLI) | payer OTHER | LOC: SJCVC 10:50 | PROVIDERS: ATTEND Internal Medicine | DX: Z51.81 Encounter for therapeutic drug level monitoring (principal); E11.9 Type 2 diabetes mellitus without complications; E78.5 Hyperlipidemia, unspecified; Z79.01 Long term (current) use of anticoagulants ==

== ENCOUNTER → 2020-11-25 | Outpatient (CLI) | payer OTHER | LOC: SJCVC 13:31 | PROVIDERS: ATTEND Internal Medicine | DX: Z51.81 Encounter for therapeutic drug level monitoring (principal); Z79.01 Long term (current) use of anticoagulants; Z79.899 Other long term (current) drug therapy; Z88.1 Allergy status to other antibiotic agents; Z88.8 Allergy status to other drugs, medicaments and biological substances; E78.5 Hyperlipidemia, unspecified; E11.9 Type 2 diabetes mellitus without complications; Z87.891 Personal history of nicotine dependence ==

== ENCOUNTER → 2021-01-03 | Outpatient (CLI) | payer OTHER | LOC: SJCVC 14:41 | PROVIDERS: ATTEND Internal Medicine | DX: Z51.81 Encounter for therapeutic drug level monitoring (principal); Z79.01 Long term (current) use of anticoagulants ==

== ENCOUNTER → 2021-01-28 | Outpatient (CLI) | payer OTHER | LOC: SJCVC 09:37 | PROVIDERS: ATTEND Internal Medicine | DX: Z51.81 Encounter for therapeutic drug level monitoring (principal); Z79.01 Long term (current) use of anticoagulants; K21.00 Gastro-esophageal reflux disease with esophagitis, without bleeding; E11.9 Type 2 diabetes mellitus without complications; J32.1 Chronic frontal sinusitis; J30.9 Allergic rhinitis, unspecified; I65.23 Occlusion and stenosis of bilateral carotid arteries; M54.18 Radiculopathy, sacral and sacrococcygeal region; F51.04 Psychophysiologic insomnia; E78.5 Hyperlipidemia, unspecified; G47.00 Insomnia, unspecified; R00.2 Palpitations; Z68.24 Body mass index [BMI] 24.0-24.9, adult; Z79.899 Other long term (current) drug therapy; Z88.8 Allergy status to other drugs, medicaments and biological substances; Z88.5 Allergy status to narcotic agent; Z91.048 Other nonmedicinal substance allergy status ==

== ENCOUNTER → 2021-02-28 | Outpatient (CLI) | payer OTHER ==
[~2021-02-28] VITALS: Ht 170.2 cm; Wt 67.1 kg
[~2021-02-28] MED LIST changes: +AMARYL4 MG PO; -NEURONTIN 300300 M1 PO; +NEURONTIN600 MG PO; +VITAMIN D3125 MC2 PO; -VITAMIN D3400 UNIT PO; +ZOLOFT50 M1 PO
[2021-02-28 09:14] LABS: INR 1.2
--- NOTE | 2021-03-01 14:01 | P ---
[facility] [place] [address] PROCEDURE REPORT Name: YURIY SHIRLEY Room #: REG [facility].#: [id number] Admission: 02/28/21 Attend Phys: Grupo Heath Discharge: Date of : 36 Report #: [id number] THIS REPORT FOR: cc: Yuriy Harry MD, Thomas P. MD McElhinney, Christian C. MD ~ cc: Yuriy Harry MD DATE OF SERVICE: 02/28/2021 PROCEDURE PERFORMED: Upper endoscopy with esophageal dilation. HISTORY OF PRESENT ILLNESS: The patient is an 80-year-old male with a history of recurrent dysphagia. Last upper endoscopy with dilation performed on 08/28/2020 with significant improvement after dilation. He has a previous history of Zenker's diverticulum that was repaired. He also has a history of gastric varices. Denies any bleeding. Plan is for repeat dilation. DESCRIPTION OF PROCEDURE: The risks and benefits of the procedure were explained to the patient, those risks including but not limited to bleeding, perforation and the risk of sedation. He understood these risks and gave informed consent. Sedation was given using propofol per Anesthesia. Next, using a standard Olympus upper endoscope, the scope was placed in the patient's mouth and advanced under direct vision through the esophagus, stomach and into the second portion of the duodenum. The larynx was normal in appearance. Again, a possible small Zenker's was noted in the proximal esophagus, otherwise normal. The mid and distal esophagus was normal. The GE junction was normal. Gastric varices were again noted. No stigmata of bleeding. The gastric antrum was normal. The pylorus was normal and patent. The duodenal bulb, first and second portion were all normal. The scope was then brought back up into the patient's stomach and a Savary guidewire was inserted through the scope, leaving the guidewire in place as the scope was then withdrawn. Next, a 57-Uzbek Savary dilation of the esophagus was then performed without difficulty. The wire and dilator removed. The scope was reintroduced into the patient's stomach. No evidence of mucosal tear was noted after dilation. The scope was then withdrawn and the procedure terminated. The patient tolerated the procedure well. IMPRESSION: 1. Small Zenker's diverticulum. 2. Small gastric varices. 3. Otherwise, normal upper endoscopy. RECOMMENDATIONS: 1. Observe the patient post-procedure. 2. Repeat dilation on a p.r.n. basis. [address] [address] PROCEDURE REPORT Name: YURIY SHIRLEY Room #: REG CLAyleen Kapoor#: [id number] Admission: 02/28/21 Attend Phys: Grupo Heath Discharge: Date of : 36 Report #: [id number] Thank you for allowing me to participate in his care. <ELECTRONICALLY SIGNED> By: Grupo Ritchie MD 03/01/21 1401 0901 16 Grupo Ritchie, /nt
== END | disposition home or self-care (01) ==
LOC: GI 08:00 → EDSTATUS 10:20 → GI 11:21
PROVIDERS: Anesthesiology; ATTEND Specialist
DX: R13.10 Dysphagia, unspecified (principal); K22.5 Diverticulum of esophagus, acquired; I86.4 Gastric varices; E11.9 Type 2 diabetes mellitus without complications; E78.5 Hyperlipidemia, unspecified; H40.9 Unspecified glaucoma; F32.9 Major depressive disorder, single episode, unspecified; K21.9 Gastro-esophageal reflux disease without esophagitis; Z98.890 Other specified postprocedural states; Z79.899 Other long term (current) drug therapy; Z86.73 Personal history of transient ischemic attack (TIA), and cerebral infarction without residual deficits; Z20.822 Contact with and (suspected) exposure to COVID-19; Z87.891 Personal history of nicotine dependence; Z91.041 Radiographic dye allergy status
CPT/HCPCS: 62110; 62900

== ENCOUNTER → 2021-03-12 | Outpatient (CLI) | payer OTHER | LOC: SJCVC 10:27 | PROVIDERS: ATTEND Internal Medicine | DX: Z51.81 Encounter for therapeutic drug level monitoring (principal); E11.9 Type 2 diabetes mellitus without complications; E78.5 Hyperlipidemia, unspecified; Z79.01 Long term (current) use of anticoagulants; Z79.84 Long term (current) use of oral hypoglycemic drugs; Z79.899 Other long term (current) drug therapy; Z79.891 Long term (current) use of opiate analgesic; Z82.49 Family history of ischemic heart disease and other diseases of the circulatory system; Z87.891 Personal history of nicotine dependence; Z88.1 Allergy status to other antibiotic agents; Z88.8 Allergy status to other drugs, medicaments and biological substances ==